=== PATIENT | female | born 1950 | race Caucasian/White ===

== ENCOUNTER 2019-03-10 23:53 | Inpatient (IN) | payer SELFPAY ==
[2019-03-11 00:47] LABS: BASO % 0.6 % (0-2.0); EOS % 4.8 % (0-4.5); HEMATOCRIT 35.3 % (32.4-45.2); HEMOGLOBIN 11.6 GM/dL (10.7-15.3); LYMPH % 28.1 % (8-40); MCH 29.1 pg (25.7-33.7); MCHC 32.9 g/dl (32.0-36.0); MEAN CELL VOLUME 88.6 fl (80-96); MEAN PLT VOLUME 12.8 fl (7.5-11.1); MONO % 11.7 % (3.8-10.2); NEUT % 54.8 % (42.8-82.8); RBC 3.98 M/mm3 (3.60-5.2); RDW 13.9 % (11.6-15.6); WHITE BLOOD COUNT 4.9 K/mm3 (4.0-10.0)
[2019-03-11] MEDS ORDERED: ACETAMINOPHEN 1000 MG/100 ML VIAL (NON FORMULARY) IVPB ONE (00:48)
[2019-03-11] MEDS ORDERED: morphine CARPU-JECT 2 MG/1 ML DISP.SYRIN IVPUSH ONE (00:48)
--- NOTE | 2019-03-11 00:48 | PDOC ---
History of Present Illness - General Chief Complaint: Cold Symptoms Stated Complaint: COUGH/MOUTH SORES Time Seen by Provider: 03/11/19 00:06 History Source: Patient Exam Limitations: Language Barrier (Chantell HARRIS #[id number]) - History of Present Illness Initial Comments: 03/11/19 00:42 HISTORY OF PRESENT ILLNESS: This is a 68-year-old woman who denies medical history presents emergency department for evaluation of headache, subjective fevers and cough for 3 days. Patient is been taking [id number] supportive treatments which have helped became concerned when she started having pain to the inside of her right cheek and reported having hemoptysis. She states the pain in her cheek started using Listerine yesterday and then the blood had started. She denies any recent travel or sick contacts. Patient states she does not take any medications and has had no surgeries. Patient reports a last dental visit was approximately 2 years ago. No recent travel or sick contacts. PAST MEDICAL HISTORY: Denies past medical history SURGICAL HISTORY: Denies ALLERGIES: No known drug allergies REVIEW OF SYSTEMS General/Constitutional: see HPI HEENT: see HPI Cardiovascular: Denies chest pain or shortness of breath. Respiratory: see HPI Gastrointestinal: Denies nausea, vomiting, diarrhea or constipation. Denies rectal bleeding. Genitourinary: Denies dysuria, frequency, or change in urination. Musculoskeletal: Denies joint or muscle swelling or pain. Denies neck or back pain. Skin and breasts: Denies rash or easy bruising. Neurologic: see HPI Psychiatric: Denies depression or anxiety. Endocrine: Denies increased thirst. Denies abnormal weight change. Hematologic/Lymphatic: Denies anemia, easy bleeding, or history of blood clots. Allergic/Immunologic: Denies hives or skin allergy. Denies latex allergy. PHYSICAL EXAM General Appearance: Well-appearing, appropriately dressed. No apparent distress , no intoxication. HEENT: EOMI, PERRLA, normal ENT inspection, normal voice, TMs normal. No conjunctival pallor. No photophobia, scleral icterus. 3 hyperpigmented tissue lesions present to the right buccal surface. Lesions are ovoid and approximately 1 cm x 2 cm x 0.25 cm. Lesions are noted to be bleeding. Sublingual surfaces are clear as well as the hard and soft palates and left buccal surface. Neck: Supple. Trachea midline. Tender anterior cervical lymphadenopathy present submandibularly. Respiratory/Chest: Lungs CTAB. No shortness of breath, chest tenderness, respiratory distress, accessory muscle use. No crackles, rales, rhonchi, stridor , wheezing, dullness Cardiovascular: RRR. S1, S2. No JVD, murmur, bradycardia, tachycardia. Vascular Pulses: Dorsalis-Pedis (R): 2+, Dorsalis-Pedis (L): 2+ Gastrointestinal/Abdominal: Normal bowel sounds. Abdomen soft, non-distended. No tenderness or rebound tenderness. No organomegaly, pulsatile mass, guarding, hernia, hepatomegaly, splenomegaly. Lymphatic: No adenopathy, tenderness. Musculoskeletal/Extremities: Normal inspection. FROM of all extremities, normal capillary refill. Pelvis Stable. No CVA tenderness. No tenderness to extremities, pedal edema, swelling, erythema or deformity. Integumentary: Appropriate color, dry, warm. No cyanosis, erythema, jaundice or rash Neurologic: drying equipment operator II-XII intact. Fully oriented, alert. Appropriate mood/affect. Motor strength 5/5. No appreciable EOM palsy, facial droop or sensory deficit. Past History - Past Medical History Allergies/Adverse Reactions: Allergies Allergy/AdvReac Type Severity Reaction Status Date / Time No Known Allergies Allergy Verified 03/11/19 00:00 Home Medications: Ambulatory Orders Mag Hydrox/Alh/Smc/Dpha/Lido [Magic Mouthwash *Sjr Formula* -] 5 ml MM Q6HPO bottle 03/14/19 Pantoprazole Sodium [Protonix -] 40 mg PO DAILY tablet.ec 03/14/19 - Suicide/Smoking/Psychosocial Hx Smoking History: Never smoked Have you smoked in the past 12 months: No Information on smoking cessation initiated: No Hx Alcohol Use: No Drug/Substance Use Hx: No *Physical Exam - Vital Signs Last Vital Signs Temp Pulse Resp BP Pulse Ox 98.1 F 70 18 123/64 97 03/11/19 00:00 03/11/19 00:00 03/11/19 00:00 03/11/19 00:00 03/11/19 00:00 ED Treatment Course - LABORATORY CBC & Chemistry Diagram: 03/14/19 07:30 03/14/19 07:30 - RADIOLOGY Radiology Studies Ordered: Category Date Time Status CHEST PA & LAT [RAD] Stat Radiology 03/11/19 00:18 Ordered Medical Decision Making - Critical Care Time Total Critical Care Time (minutes): 45 Critical Care Statement: The care of this patient involved high complexity decision making to prevent further life threatening deterioration of the patient 's condition and/or to evaluate & treat vital organ system(s) failure or risk of failure. - Medical Decision Making 03/11/19 00:47 A/P: 68-year-old woman with 3 days of upper respiratory illness and bleeding lesions in her mouth for 2 days Differential diagnosis includes but is not limited to upper rest infection, neoplasm-? Leukemia or lymphoma, anemia, tuberculosis, pneumonia Basic labs including correlation profile Chest x-ray Morphine 2 mg IV Tylenol 1 g IV Reassess 03/11/19 01:12 Laboratory Tests 03/11/19 03/11/19 00:35 00:35 WBC 4.9 Hgb 11.6 Hct 35.3 Plt Count 1 L* Sodium 144 Potassium 4.8 Chloride 112 H Carbon Dioxide 29 BUN 23.5 H Creatinine 0.9 Random Glucose 123 H Calcium 8.5 Total Bilirubin 0.4 AST 20 ALT 35 Alkaline Phosphatase 78 Total Protein 7.1 Albumin 4.0 Repeat type and screen ordered as patient has never had a type and screen in the system before. CT head now prior to admission. Platelets ordered. 03/11/19 01:18 03/11/19 02:08 Laboratory testing has been discussed with the patient. Risks and benefits of blood transfusion have been explained to the patient's questions related to wrist and benefits of blood transfusion have been answered. Patient is agreement to have platelets transfused and has signed consent. The patient understands the need for admission. CT scan as read by me: No intracranial hemorrhage identified. [place]k read is pending. Chest x-rays read by me: Angles clear. Cardiac silhouette is within normal limits. Lung delarosa are clear without consolidations or infiltrates noted. D-dimer and fibrinogen ordered. Microblog sent to the hospitalist service for admission. 03/11/19 02:09 03/11/19 02:25 03/11/19 02:46 Case has been discussed with Dr. Jennings of the hospitalist service who accepts patient for admission under Dr. Lugo. 03/11/19 02:[address] Rosales of imaging rehabilitation services counselor: Irregular thickening of the high parietal falx possibly representing a 3 mm right-sided subdural hematoma. Is also 2 mm density anterior to the frontal horn of the right lateral ventricle which could represent a tiny bleed or tiny calcification. There is no mass effect. No skull fracture or skull lesion is identified. Visualized paranasal sinuses and mastoid air cells are clear. Recommends repeat imaging within [address] or MRI. 03/11/19 03:12 Given CTA findings, neurosurgery has been paged to discuss the case. Admission is on hold until neurosurgery has been consult. Patient has been signed out to Breanna Hickey to follow up with neurosurgery and disposition. *DC/Admit/Observation/Transfer Diagnosis at time of Disposition: Thrombocytopenia - Discharge Dispostion Disposition: TRANSFER ACUTE CARE/OTHER HOSP Condition at time of disposition: Good - Referrals - Patient Instructions - Post Discharge Activity
[2019-03-11] MEDS ORDERED: ACETAMINOPHEN INJECTION 100 ML IVPB ONE (00:55)
[2019-03-11] MEDS ORDERED: MORPHINE SULFATE 2 MG/ML VIAL ONE (00:55)
[2019-03-11 01:06] LABS: BILIRUBIN,TOTAL 0.4 mg/dL (0.2-1); BLOOD UREA NITROGEN 23.5 mg/dL (7-18); CALCIUM 8.5 mg/dL (8.5-10.1); CREATININE 0.9 mg/dL (0.55-1.3); POTASSIUM 4.8 mmol/L (3.5-5.1); TOT PROT 7.1 g/dl (6.4-8.2)
[2019-03-11 01:07] LABS: INR 0.95 (0.83-1.09); PROTHROMBIN TIME (PATIENT) 11.2 SEC (9.7-13.0)
[2019-03-11 01:41] LABS: EPI CELLS 9.6 /HPF (0-5/HPF); HYALINE CASTS 81 /lpf (0-8); URINE APPEARANCE CLOUDY; URINE BACTERIA 37.3 /hpf (NEGATIVE); URINE BILIRUBIN 1+ (NEGATIVE); URINE COLOR DK YELLOW; URINE GLUCOSE (UA) NEGATIVE (NEGATIVE); URINE KETONE 1+ (NEGATIVE); URINE LEUK ESTERASE 1+ (NEGATIVE); URINE NITRITE NEGATIVE (NEGATIVE); URINE PROTEIN 2+ (NEGATIVE); URINE WBC 24 /hpf (0-5)
[2019-03-11 03:05] LABS: PLATELET COUNT 1 K/MM3 (134-434)
[2019-03-11 03:40] LABS: URINE RBC 9 /hpf (0-4)
--- NOTE | 2019-03-11 03:42 | PDOC ---
*Physical Exam - Vital Signs Last Vital Signs Temp Pulse Resp BP Pulse Ox 98.7 F 73 18 131/81 95 03/11/19 00:10 03/11/19 00:10 03/11/19 00:10 03/11/19 00:10 03/11/19 00:10 ED Treatment Course - LABORATORY CBC & Chemistry Diagram: 03/14/19 07:30 03/14/19 07:30 - ADDITIONAL ORDERS Additional order review: Laboratory Results 03/11/19 03/11/19 03/11/19 01:31 00:50 00:35 PT with INR INR Sodium Potassium Chloride Carbon Dioxide Anion Gap BUN Creatinine Est GFR (CKD-EPI)AfAm Est GFR (CKD-EPI)NonAf Random Glucose Calcium Total Bilirubin AST ALT Alkaline Phosphatase Total Protein Albumin Urine Color Dk yellow Urine Appearance Cloudy Urine pH 5.0 Ur Specific [place] 1.037 H Urine Protein 2+ H Urine Glucose (UA) Negative Urine Ketones 1+ H Urine Blood Trace Urine Nitrite Negative Urine Bilirubin 1+ H Urine Urobilinogen 1.0 Ur Leukocyte Esterase 1+ H Urine WBC (Auto) 24 Urine Casts (Auto) 81 U Pathogenic Cast Auto Review A* U Epithel Cells (Auto) 9.6 Urine Bacteria (Auto) 37.3 Urine Yeast (Auto) Review A* Blood Type A POSITIVE A POSITIVE Antibody Screen Negative 03/11/19 03/11/19 00:35 00:35 PT with INR 11.20 INR 0.95 Sodium 144 Potassium 4.8 Chloride 112 H Carbon Dioxide 29 Anion Gap 4 L BUN 23.5 H Creatinine 0.9 Est GFR (CKD-EPI)AfAm 77.22 Est GFR (CKD-EPI)NonAf 66.63 Random Glucose 123 H Calcium 8.5 Total Bilirubin 0.4 AST 20 ALT 35 Alkaline Phosphatase 78 Total Protein 7.1 Albumin 4.0 Urine Color Urine Appearance Urine pH Ur Specific [place] Urine Protein Urine Glucose (UA) Urine Ketones Urine Blood Urine Nitrite Urine Bilirubin Urine Urobilinogen Ur Leukocyte Esterase Urine WBC (Auto) Urine Casts (Auto) U Pathogenic Cast Auto U Epithel Cells (Auto) Urine Bacteria (Auto) Urine Yeast (Auto) Blood Type Antibody Screen 03/11/19 00:35 RBC 3.98 MCV 88.6 MCHC 32.9 RDW 13.9 MPV 12.8 H Neutrophils % 54.8 Lymphocytes % 28.1 Monocytes % 11.7 H Eosinophils % 4.8 H Basophils % 0.6 - Medications Given in the ED: ED Medications Discontinued Medications Generic Name Dose Route Start Last Admin Trade Name Jose Luis PRN Reason Stop Dose Admin Acetaminophen 1,000 mg 03/11/19 00:48 03/11/19 01:08 Ofirmev Injection - IVPB 03/11/19 00:49 1,000 mg ONCE ONE Administration Morphine Sulfate 2 mg 03/11/19 00:48 03/11/19 01:07 Morphine Injection - IVPUSH 03/11/19 00:49 2 mg ONCE ONE Administration Medical Decision Making - Critical Care Time Total Critical Care Time (minutes): 60 Critical Care Statement: The care of this patient involved high complexity decision making to prevent further life threatening deterioration of the patient 's condition and/or to evaluate & treat vital organ system(s) failure or risk of failure. - Medical Decision Making 03/11/19 03:37 Pt signed out to me by LIZZ Stevenson at 3AM 68 F with severe thrombocytopenia. Head CT obtained showing ?SDH. Per radiologist, this could be artifact but given thrombocytopenia, cannot exclude bleed. Will need repeat head CT in 24 hrs. Pt without headache, no neuro deficits at this time Dr. Анна rodríguez, awaiting callback. 03/11/19 03:48 Pt admitted to hospitalist Will admit to ICU 03/15/19 09:23 *DC/Admit/Observation/Transfer Diagnosis at time of Disposition: Thrombocytopenia - Discharge Dispostion Disposition: TRANSFER ACUTE CARE/OTHER HOSP Condition at time of disposition: Good Decision to Admit order: Yes - Referrals - Patient Instructions - Post Discharge Activity - Attestations Physician Attestion: 03/11/19 03:50 I, Dr. Maverick Hickey MD, attest that this document has been prepared under my direction and personally reviewed by me in its entirety. I further attest, that it accurately reflects all work, treatment, procedures and medical decision -making performed by me.
--- NOTE | 2019-03-11 03:44 | PN ---
Teaching Attending Note Name of Resident: Pearl Jennings ATTENDING PHYSICIAN STATEMENT I saw and evaluated the patient. CHart, data, imaging reviewed. I reviewed the resident's note and discussed the case with the resident. I agree with the resident's findings and plan as documented. SUBJECTIVE: 68yo Maur[place] woman c/o cough, headache since this past wed, reported oral mucosal bleeding which started / and prompted her to come to ER. She took one advil for her headache yesterday. Denied taking any other medications. OBJECTIVE: Last Vital Signs Temp Pulse Resp BP Pulse Ox 98.7 F 73 18 131/81 95 03/11/19 00:10 03/11/19 00:10 03/11/19 00:10 03/11/19 00:10 03/11/19 00:10 heent- bleeding inside oral cavity, blood clots seen neck supple chest clear cv-s1+s2+rrr abdomen- soft, nt, bs+ skin -multiple petechaie seen Abnormal Lab Results 03/11/19 03/11/19 03/11/19 00:35 00:35 00:50 Plt Count 1 L* MPV 12.8 H Monocytes % 11.7 H Eosinophils % 4.8 H Chloride 112 H Anion Gap 4 L BUN 23.5 H Random Glucose 123 H Ur Specific [place] 1.037 H Urine Protein 2+ H Urine Ketones 1+ H Urine Bilirubin 1+ H Ur Leukocyte Esterase 1+ H U Pathogenic Cast Auto Review A* Urine Yeast (Auto) Review A* head CT report appreciated- possible 3mm right sided hematoma -thickening of high parietal falx. 2mm density anterior to frontal horn of right lateral ventricle - could be tiny bleed ASSESSMENT AND PLAN: #Severe thrombocytopenia - 1k plt, confirmed in sodium citrate tube with hematology with possible small foci of intracranial bleed as described above. Hemodynamically stable. Uncertain etiology of thrombocytopenia. No family history. R/o splenomegally, hep b,c HIV. ITP? Denied taking other meds other than one dose of advil. 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
--- NOTE | 2019-03-11 04:51 | HP ---
CHIEF COMPLAINT: Headache, Cough PCP: Denies HISTORY OF PRESENT ILLNESS: 68 y/o F with no significant PMHx presents from home with Oral mucosa bleeding. Patient is primarily ugandan speaking, thus the hx was provided via machine rigger phone (Delon [id number]). Patient was in her usual state of health on Tuesday; On tuesday while ironing clothes, she began to cough productive of some blood. She then rinsed her mouth with listerine and water, and noticed sores over her buccal mucosa. Since then, the lesions have continued to bleed and became painful yesterday for which the patient took Advil (cannot recall dose). The pain and bleeding have continued prompting her to visit the ED. This is the first time she has experienced this and she denies any trauma or recent falls. She has used listerine in the past without any reaction in the past. Additionally she endorses headache and subjective fevers. Denies any recent medication use, travel. Denies any hx of HIV, Hep B/C, SLE. Denies any family members with any similar symptoms. No recent viral illness. ER course was notable for: (1) (2) (3) Recent Travel: Denies PAST MEDICAL HISTORY: Denies PAST SURGICAL HISTORY: Denies Social History: Smoking: Denies Alcohol: Denies Drugs: Denies Family History: Denies Allergies No Known Allergies Allergy (Verified 03/11/19 00:00) HOME MEDICATIONS: Home Medications Medication Instructions Recorded NK [No Known Home Medication] 03/11/19 REVIEW OF SYSTEMS As per HPI PHYSICAL EXAMINATION Vital Signs - 24 hr 03/11/19 03/11/19 00:00 00:10 Temperature 98.1 F 98.7 F Pulse Rate 70 Pulse Rate [ 73 Left Apical] Respiratory 18 18 Rate Blood Pressure 123/64 Blood Pressure 131/81 [Right Arm] O2 Sat by Pulse 97 95 Oximetry (%) GENERAL:A&Ox3, NAD HEAD: NCAT EYES: PERRL, EOMI EARS, NOSE, THROAT: Small lesion over the right buccal membrane with active bleeding, blood clots present over lesion NECK: Supple LUNGS: clear to auscultation bilaterally. No wheezes, no crackles HEART: Regular rate and rhythm, normal S1 and S2 without murmur ABDOMEN: Soft, nontender, not distended, + bowel sounds, no guarding MUSCULOSKELETAL: No CVA tenderness EXTREMITIES: No peripheral edema. NEUROLOGICAL: Cranial nerves II-XII intact. Normal speech SKIN: Warm, dry, Petechiaeie seen over the abdomen and b/l lower extremities Laboratory Results - last 24 hr 03/11/19 03/11/19 03/11/19 00:35 00:35 00:35 WBC 4.9 RBC 3.98 Hgb 11.6 Hct 35.3 MCV 88.6 MCH 29.1 MCHC 32.9 RDW 13.9 Plt Count 1 L* MPV 12.8 H Absolute Neuts (auto) 2.7 Neutrophils % 54.8 Lymphocytes % 28.1 Monocytes % 11.7 H Eosinophils % 4.8 H Basophils % 0.6 Nucleated RBC % 0 PT with INR 11.20 INR 0.95 PTT (Actin FS) Fibrinogen D-Dimer Sodium 144 Potassium 4.8 Chloride 112 H Carbon Dioxide 29 Anion Gap 4 L BUN 23.5 H Creatinine 0.9 Est GFR (CKD-EPI)AfAm 77.22 Est GFR (CKD-EPI)NonAf 66.63 Random Glucose 123 H Calcium 8.5 Total Bilirubin 0.4 AST 20 ALT 35 Alkaline Phosphatase 78 Total Protein 7.1 Albumin 4.0 Urine Color Urine Appearance Urine pH Ur Specific [place] Urine Protein Urine Glucose (UA) Urine Ketones Urine Blood Urine Nitrite Urine Bilirubin Urine Urobilinogen Ur Leukocyte Esterase Urine WBC (Auto) Urine RBC (Auto) Urine Casts (Auto) U Pathogenic Cast Auto U Epithel Cells (Auto) U Sm Round Cell (Auto) Urine Crystals (Auto) Urine Bacteria (Auto) Urine Yeast (Auto) Blood Type Antibody Screen 03/11/19 03/11/19 03/11/19 00:35 00:50 01:31 WBC RBC Hgb Hct MCV MCH MCHC RDW Plt Count MPV Absolute Neuts (auto) Neutrophils % Lymphocytes % Monocytes % Eosinophils % Basophils % Nucleated RBC % PT with INR INR PTT (Actin FS) Fibrinogen D-Dimer Sodium Potassium Chloride Carbon Dioxide Anion Gap BUN Creatinine Est GFR (CKD-EPI)AfAm Est GFR (CKD-EPI)NonAf Random Glucose Calcium Total Bilirubin AST ALT Alkaline Phosphatase Total Protein Albumin Urine Color Dk yellow Urine Appearance Cloudy Urine pH 5.0 Ur Specific [place] 1.037 H Urine Protein 2+ H Urine Glucose (UA) Negative Urine Ketones 1+ H Urine Blood Trace Urine Nitrite Negative Urine Bilirubin 1+ H Urine Urobilinogen 1.0 Ur Leukocyte Esterase 1+ H Urine WBC (Auto) 24 Urine RBC (Auto) 9 Urine Casts (Auto) 81 U Pathogenic Cast Auto None U Epithel Cells (Auto) 9.6 U Sm Round Cell (Auto) None Urine Crystals (Auto) None Urine Bacteria (Auto) 37.3 Urine Yeast (Auto) None Blood Type A POSITIVE A POSITIVE Antibody Screen Negative Negative 03/11/19 03/11/19 01:53 03:16 WBC RBC Hgb Hct MCV MCH MCHC RDW Plt Count MPV Absolute Neuts (auto) Neutrophils % Lymphocytes % Monocytes % Eosinophils % Basophils % Nucleated RBC % PT with INR INR PTT (Actin FS) 41.4 H Fibrinogen 455.0 D-Dimer 996 H Sodium Potassium Chloride Carbon Dioxide Anion Gap BUN Creatinine Est GFR (CKD-EPI)AfAm Est GFR (CKD-EPI)NonAf Random Glucose Calcium Total Bilirubin AST ALT Alkaline Phosphatase Total Protein Albumin Urine Color Urine Appearance Urine pH Ur Specific [place] Urine Protein Urine Glucose (UA) Urine Ketones Urine Blood Urine Nitrite Urine Bilirubin Urine Urobilinogen Ur Leukocyte Esterase Urine WBC (Auto) Urine RBC (Auto) Urine Casts (Auto) U Pathogenic Cast Auto U Epithel Cells (Auto) U Sm Round Cell (Auto) Urine Crystals (Auto) Urine Bacteria (Auto) Urine Yeast (Auto) Blood Type Antibody Screen IMAGING: -CT Head without contrast (Prelim read): Very questionable 3 mm high right parafalcine subdural hematoma without mass-effect. Questionable 2 mm bleed or calcification anterior to the frontal bone of the right lateral ventricle. Recommend follow-up CT or MRI in the next 24 hours in order to demonstrate stability EKG: Sinus bradycardia, VR 57, QTc 430 ASSESSMENT/PLAN: 68 y/o F with no significant PMHx presents from home with Oral mucosa bleeding, found to have Platelet count of 1K, and possible Subdural Hematoma and bleed or calcification anterior to the frontal bone, and will be admitted to ICU. #Isolated Thrombocytopenia -Unclear Etiology; No recent medication use (including Heparin, NOAC, Clopidogrel) other than Advil, Denies any hx of HIV, HCV, SLE, No Family hx-- Concern remains for ITP -Neck tenderness however no noted Anterior Lymphadenopathy, No Splenomegaly -VSS, Continues to have small amount of bleeding from area -Abdominal US to r/o splenomegaly -Check Hep B/C panel, HIV, CXR -Will Transfuse platelets for goal of >100k with serial Plt check's -Hematology (Dr. Barker) Consulted #Subdural Hematoma and bleed or calcification anterior to the frontal bone -CT Head finding noted above -Remains without FND -Neurosurgey (Dr. Jj) consulted -Serial head CT Q8H -Neurocheck Q4H -Avoid Antiplatelet and Anticoagulation agents -Continue oral suctioning #FEN -No standing fluids -Lytes WNL -NPO pending neurosx eval #PPx -DVT: SCDs; Hold chemical AC in the setting of thrombocytopenia Dispo: Admit to ICU Visit type - Emergency Visit Emergency Visit: Yes ED Registration Date: 03/11/19 Care time: The patient presented to the Emergency Department on the above date and was hospitalized for further evaluation of their emergent condition. - New Patient This patient is new to me today: Yes Date on this admission: 03/12/19 - Critical Care Critical Care patient: No
--- NOTE | 2019-03-11 05:18 | CONSULT ---
Consultation: HISTORY OF PRESENT ILLNESS: 68F with no pmh presented to the ED with sore throat and cough since Tuesday as well as bleeding from her mouth. She states that she was chewing gun on Tuesday before she bit her tongue on the left side. She used listerine and has been bleeding ever since. Took one advil yesterday. Patient found to have platelet count of 1 and questionable small acute subdural hematoma. Patient started on 6 Units of platelets. ICu consulted. REVIEW OF SYSTEMS: CONSTITUTIONAL: Absent: fever, chills, diaphoresis, generalized weakness, malaise, loss of appetite, weight change HEENT: Sore throat, bleeding from mouth. Absent: rhinorrhea, nasal congestion, throat swelling, difficulty swallowing, mouth swelling, ear pain, eye pain, visual changes CARDIOVASCULAR: Absent: chest pain, syncope, palpitations, irregular heart rate, lightheadedness , peripheral edema RESPIRATORY: Absent: cough, shortness of breath, dyspnea with exertion, orthopnea, wheezing, stridor, hemoptysis GASTROINTESTINAL: Absent: abdominal pain, abdominal distension, nausea, vomiting, diarrhea, constipation, melena, hematochezia GENITOURINARY: Absent: dysuria, frequency, urgency, hesitancy, hematuria, flank pain, genital pain MUSCULOSKELETAL: Absent: myalgia, arthralgia, joint swelling, back pain, neck pain SKIN: Absent: rash, itching, pallor HEMATOLOGIC/IMMUNOLOGIC: Absent: easy bleeding, easy bruising, lymphadenopathy, frequent infections ENDOCRINE: Absent: unexplained weight gain, unexplained weight loss, heat intolerance, cold intolerance NEUROLOGIC: Absent: headache, focal weakness or paresthesias, dizziness, unsteady gait, seizure, mental status changes, bladder or bowel incontinence PSYCHIATRIC: Absent: anxiety, depression, suicidal or homicidal ideation, hallucinations. PHYSICAL EXAMINATION Vital Signs - 24 hr 03/11/19 03/11/19 00:00 00:10 Temperature 98.1 F 98.7 F Pulse Rate 70 Pulse Rate [ 73 Left Apical] Respiratory 18 18 Rate Blood Pressure 123/64 Blood Pressure 131/81 [Right Arm] O2 Sat by Pulse 97 95 Oximetry (%) GENERAL: Awake, alert, and fully oriented, in no acute distress. HEAD: Normal with no signs of trauma. EYES: Pupils equal, round and reactive to light, extraocular movements intact, sclera anicteric, conjunctiva clear. No lid lag. EARS, NOSE, THROAT: Ears normal, nares patent, oropharynx clear without exudates. Moist mucous membranes. Soft, narrow, purple mass well-demarcated from within the cheek wall, with easily separable hurtaod, bleeding, mildly painful. Small ulcer to the left side of the tongue. NECK: Normal range of motion, supple without lymphadenopathy, JVD, or masses. LUNGS: Breath sounds equal, clear to auscultation bilaterally. No wheezes, and no crackles. No accessory muscle use. HEART: Regular rate and rhythm, normal S1 and S2 without murmur, rub or gallop. ABDOMEN: Soft, nontender, not distended, normoactive bowel sounds, no guarding, no rebound, no masses. No hepatomegaly or splenomegaly. MUSCULOSKELETAL: Normal range of motion at all joints. No bony deformities or tenderness. No CVA tenderness. UPPER EXTREMITIES: 2+ pulses, warm, well-perfused. No cyanosis. No clubbing. Cap refill <2 seconds. No peripheral edema. LOWER EXTREMITIES: 2+ pulses, warm, well-perfused. No calf tenderness. No peripheral edema. NEUROLOGICAL: Cranial nerves II-XII intact. Normal speech. Normal gait. PSYCHIATRIC: Cooperative. Good eye contact. Appropriate mood and affect. SKIN: Small hematoma middle palm of the left hand. generalized petechiae, worse over the legs. Warm, dry, normal turgor. Laboratory Results - last 24 hr 03/11/19 03/11/19 03/11/19 00:35 00:35 00:35 WBC 4.9 RBC 3.98 Hgb 11.6 Hct 35.3 MCV 88.6 MCH 29.1 MCHC 32.9 RDW 13.9 Plt Count 1 L* MPV 12.8 H Absolute Neuts (auto) 2.7 Neutrophils % 54.8 Lymphocytes % 28.1 Monocytes % 11.7 H Eosinophils % 4.8 H Basophils % 0.6 Nucleated RBC % 0 PT with INR 11.20 INR 0.95 PTT (Actin FS) Fibrinogen D-Dimer Sodium 144 Potassium 4.8 Chloride 112 H Carbon Dioxide 29 Anion Gap 4 L BUN 23.5 H Creatinine 0.9 Est GFR (CKD-EPI)AfAm 77.22 Est GFR (CKD-EPI)NonAf 66.63 Random Glucose 123 H Calcium 8.5 Total Bilirubin 0.4 AST 20 ALT 35 Alkaline Phosphatase 78 Total Protein 7.1 Albumin 4.0 Urine Color Urine Appearance Urine pH Ur Specific [place] Urine Protein Urine Glucose (UA) Urine Ketones Urine Blood Urine Nitrite Urine Bilirubin Urine Urobilinogen Ur Leukocyte Esterase Urine WBC (Auto) Urine RBC (Auto) Urine Casts (Auto) U Pathogenic Cast Auto U Epithel Cells (Auto) U Sm Round Cell (Auto) Urine Crystals (Auto) Urine Bacteria (Auto) Urine Yeast (Auto) Blood Type Antibody Screen 03/11/19 03/11/19 03/11/19 00:35 00:50 01:31 WBC RBC Hgb Hct MCV MCH MCHC RDW Plt Count MPV Absolute Neuts (auto) Neutrophils % Lymphocytes % Monocytes % Eosinophils % Basophils % Nucleated RBC % PT with INR INR PTT (Actin FS) Fibrinogen D-Dimer Sodium Potassium Chloride Carbon Dioxide Anion Gap BUN Creatinine Est GFR (CKD-EPI)AfAm Est GFR (CKD-EPI)NonAf Random Glucose Calcium Total Bilirubin AST ALT Alkaline Phosphatase Total Protein Albumin Urine Color Dk yellow Urine Appearance Cloudy Urine pH 5.0 Ur Specific [place] 1.037 H Urine Protein 2+ H Urine Glucose (UA) Negative Urine Ketones 1+ H Urine Blood Trace Urine Nitrite Negative Urine Bilirubin 1+ H Urine Urobilinogen 1.0 Ur Leukocyte Esterase 1+ H Urine WBC (Auto) 24 Urine RBC (Auto) 9 Urine Casts (Auto) 81 U Pathogenic Cast Auto None U Epithel Cells (Auto) 9.6 U Sm Round Cell (Auto) None Urine Crystals (Auto) None Urine Bacteria (Auto) 37.3 Urine Yeast (Auto) None Blood Type A POSITIVE A POSITIVE Antibody Screen Negative Negative 03/11/19 03/11/19 01:53 03:16 WBC RBC Hgb Hct MCV MCH MCHC RDW Plt Count MPV Absolute Neuts (auto) Neutrophils % Lymphocytes % Monocytes % Eosinophils % Basophils % Nucleated RBC % PT with INR INR PTT (Actin FS) 41.4 H Fibrinogen 455.0 D-Dimer 996 H Sodium Potassium Chloride Carbon Dioxide Anion Gap BUN Creatinine Est GFR (CKD-EPI)AfAm Est GFR (CKD-EPI)NonAf Random Glucose Calcium Total Bilirubin AST ALT Alkaline Phosphatase Total Protein Albumin Urine Color Urine Appearance Urine pH Ur Specific [place] Urine Protein Urine Glucose (UA) Urine Ketones Urine Blood Urine Nitrite Urine Bilirubin Urine Urobilinogen Ur Leukocyte Esterase Urine WBC (Auto) Urine RBC (Auto) Urine Casts (Auto) U Pathogenic Cast Auto U Epithel Cells (Auto) U Sm Round Cell (Auto) Urine Crystals (Auto) Urine Bacteria (Auto) Urine Yeast (Auto) Blood Type Antibody Screen Active Medications Generic Name Dose Route Start Last Admin Trade Name Jose Luis PRN Reason Stop Dose Admin Chlorhexidine Gluconate 1 applic 03/11/19 22:00 Hibiclens For Decolonization - TP HS AZUCENA Mupirocin 1 applic 03/11/19 10:00 Bactroban Ointment (For Decolonization) - NS 03/16/19 09:59 BID [facility] ASSESSMENT/PLAN: 68F with no pmh presented to the ED with sore throat and cough since Tuesday as well as bleeding from her mouth. Neuro: Subdural hematoma? - No focal deficits or changes at this time. - Consulted with Dr. Jj Neurosurgery, no call backs yet. - Ct head repeat at 9am - Neuro checks q4 - Oral suctioning as needed. Heme/onc: Thrombocytopenia - Thrombocytopenia treated with 6 units of platelets currently running. Goal > [id number] - Blood smear pending - Pending tests for viral infectious sources. Consult ID if needed. - abdominal US pending - Dr. Barker consulted. Cardio - Hemodynamically stable Diet: - NPO until neurosx consult. SCDs; Hold chemical AC in the setting of thrombocytopenia Dispo: We will continue to follow the patient. Thank you for this consultative opportunity. Visit type - Emergency Visit Emergency Visit: Yes ED Registration Date: 03/11/19 Care time: The patient presented to the Emergency Department on the above date and was hospitalized for further evaluation of their emergent condition. - New Patient This patient is new to me today: Yes Date on this admission: 03/11/19 - Critical Care Critical Care patient: Yes Total Critical Care Time (in minutes): 35 Critical Care Statement: The care of this patient involved high complexity decision making to prevent further life threatening deterioration of the patient 's condition and/or to evaluate & treat vital organ system(s) failure or risk of failure.
[2019-03-11 07:43] LABS: ALBUMIN 3.9 g/dl (3.4-5.0); ALK PHOS 73 U/L (45-117); ANION GAP 4 MMOL/L (8-16); BILIRUBIN,TOTAL 0.4 mg/dL (0.2-1); BLOOD UREA NITROGEN 24.5 mg/dL (7-18); CALCIUM 8.7 mg/dL (8.5-10.1); CHLORIDE 111 mmol/L (98-107); CO2 28 mmol/L (21-32); CREATININE 0.8 mg/dL (0.55-1.3); GLUCOSE,RANDOM 100 mg/dL (74-106); MAGNESIUM 2.4 mg/dL (1.8-2.4); PHOSPHOROUS 4.7 mg/dL (2.5-4.9); POTASSIUM 3.9 mmol/L (3.5-5.1); SGOT/AST 20 U/L (15-37); SGPT/ALT 35 U/L (13-61); SODIUM 143 mmol/L (136-145); TOT PROT 6.9 g/dl (6.4-8.2)
[2019-03-11 08:52] LABS: HEMATOCRIT 29.8 % (32.4-45.2); HEMOGLOBIN 9.8 GM/dL (10.7-15.3); MCH 29.1 pg (25.7-33.7); MEAN CELL VOLUME 88.2 fl (80-96); MEAN PLT VOLUME 8.2 fl (7.5-11.1); RBC 3.38 M/mm3 (3.60-5.2); RDW 13.8 % (11.6-15.6)
[2019-03-11 09:11] LABS: PLATELET COUNT 68 K/MM3 (134-434)
--- NOTE | 2019-03-11 10:42 | PN ---
Teaching Attending Note Name of Resident: Efrain Mora ATTENDING PHYSICIAN STATEMENT I saw and evaluated the patient. I reviewed the resident's note and discussed the case with the resident. I agree with the resident's findings and plan as documented. SUBJECTIVE: Pt seen and examined in the ICU. No obvious bleeding. Does c/o mild frontal headache. No nausea. OBJECTIVE: Vital Signs Period Temp Pulse Resp BP Sys/Farooq Pulse Ox Last 24 Hr 97.8 F-98.7 F 55-73 16-22 111-142/64-88 95-100 Intake & Output 03/08/19 03/09/19 03/10/19 03/11/19 23:59 23:59 23:59 23:59 Intake Total 355 Balance 355 Weight 69 kg Gen: NAD at rest Heart: RRR Lung: decreased breath sounds at the bases Abd: soft, nontender Ext: no edema Skin: +petechiae CBC, BMP 03/11/19 07:00 03/11/19 07:00 Active Medications Chlorhexidine Gluconate (Hibiclens For Decolonization -) 1 applic TP HS AZUCENA Mupirocin (Bactroban Ointment (For Decolonization) -) 1 applic NS BID AZUCENA Stop: 03/16/19 09:59 ASSESSMENT AND PLAN: Severe Thrombocytopenia Anemia r/o ITP Subdural Hematoma - neuro checks - repeat CT head - monitor CBC - transfuse as needed - viral studies pending - peripheral smear - heme eval - continue ICU monitoring for now
--- NOTE | 2019-03-11 10:54 | PN ---
Physical Exam: SUBJECTIVE: Patient seen and examined at bedside. Complains of mild headache. Bleeding has resolved. OBJECTIVE: Vital Signs Period Temp Pulse Resp BP Sys/Farooq Pulse Ox Last 24 Hr 97.8 F-98.7 F 55-73 16-22 111-142/64-88 95-100 GENERAL: A&Ox3, no acute distress EYES: PERRLA, EOMI ENT: R side of cheek erythematous lesion on inside of mouth, appears to be peeling off mucosa. L sided tongue lesion noted from bite. NECK: No JVD LUNGS: CTA, no wheezes HEART: RRR, no murmurs ABDOMEN: Soft, nontender, BS present, petechiae noted on BREAST: no breast lesions or nodules noted on exam MUSCULOSKELETAL: No CVA Tenderness EXTREMITIES: 2+ pulses, no edema. petechiae noted on b/l lower extremities NEUROLOGICAL: Cranial nerves II-XII intact. No focal deficits. Laboratory Results - last 24 hr 03/11/19 03/11/19 03/11/19 00:35 00:35 00:35 WBC 4.9 RBC 3.98 Hgb 11.6 Hct 35.3 MCV 88.6 MCH 29.1 MCHC 32.9 RDW 13.9 Plt Count 1 L* MPV 12.8 H Absolute Neuts (auto) 2.7 Neutrophils % 54.8 Lymphocytes % 28.1 Monocytes % 11.7 H Eosinophils % 4.8 H Basophils % 0.6 Nucleated RBC % 0 PT with INR 11.20 INR 0.95 PTT (Actin FS) Fibrinogen D-Dimer Sodium 144 Potassium 4.8 Chloride 112 H Carbon Dioxide 29 Anion Gap 4 L BUN 23.5 H Creatinine 0.9 Est GFR (CKD-EPI)AfAm 77.22 Est GFR (CKD-EPI)NonAf 66.63 Random Glucose 123 H Calcium 8.5 Phosphorus Magnesium Total Bilirubin 0.4 AST 20 ALT 35 Alkaline Phosphatase 78 Total Protein 7.1 Albumin 4.0 Vitamin B12 Urine Color Urine Appearance Urine pH Ur Specific [place] Urine Protein Urine Glucose (UA) Urine Ketones Urine Blood Urine Nitrite Urine Bilirubin Urine Urobilinogen Ur Leukocyte Esterase Urine WBC (Auto) Urine RBC (Auto) Urine Casts (Auto) U Pathogenic Cast Auto U Epithel Cells (Auto) U Sm Round Cell (Auto) Urine Crystals (Auto) Urine Bacteria (Auto) Urine Yeast (Auto) Monoscreen Blood Type Antibody Screen 03/11/19 03/11/19 03/11/19 00:35 00:50 01:31 WBC RBC Hgb Hct MCV MCH MCHC RDW Plt Count MPV Absolute Neuts (auto) Neutrophils % Lymphocytes % Monocytes % Eosinophils % Basophils % Nucleated RBC % PT with INR INR PTT (Actin FS) Fibrinogen D-Dimer Sodium Potassium Chloride Carbon Dioxide Anion Gap BUN Creatinine Est GFR (CKD-EPI)AfAm Est GFR (CKD-EPI)NonAf Random Glucose Calcium Phosphorus Magnesium Total Bilirubin AST ALT Alkaline Phosphatase Total Protein Albumin Vitamin B12 Urine Color Dk yellow Urine Appearance Cloudy Urine pH 5.0 Ur Specific [place] 1.037 H Urine Protein 2+ H Urine Glucose (UA) Negative Urine Ketones 1+ H Urine Blood Trace Urine Nitrite Negative Urine Bilirubin 1+ H Urine Urobilinogen 1.0 Ur Leukocyte Esterase 1+ H Urine WBC (Auto) 24 Urine RBC (Auto) 9 Urine Casts (Auto) 81 U Pathogenic Cast Auto None U Epithel Cells (Auto) 9.6 U Sm Round Cell (Auto) None Urine Crystals (Auto) None Urine Bacteria (Auto) 37.3 Urine Yeast (Auto) None Monoscreen Blood Type A POSITIVE A POSITIVE Antibody Screen Negative Negative 03/11/19 03/11/19 03/11/19 01:53 03:16 07:00 WBC RBC Hgb Hct MCV MCH MCHC RDW Plt Count MPV Absolute Neuts (auto) Neutrophils % Lymphocytes % Monocytes % Eosinophils % Basophils % Nucleated RBC % PT with INR INR PTT (Actin FS) 41.4 H Fibrinogen 455.0 D-Dimer 996 H Sodium Potassium Chloride Carbon Dioxide Anion Gap BUN Creatinine Est GFR (CKD-EPI)AfAm Est GFR (CKD-EPI)NonAf Random Glucose Calcium Phosphorus Magnesium Total Bilirubin AST ALT Alkaline Phosphatase Total Protein Albumin Vitamin B12 Urine Color Urine Appearance Urine pH Ur Specific [place] Urine Protein Urine Glucose (UA) Urine Ketones Urine Blood Urine Nitrite Urine Bilirubin Urine Urobilinogen Ur Leukocyte Esterase Urine WBC (Auto) Urine RBC (Auto) Urine Casts (Auto) U Pathogenic Cast Auto U Epithel Cells (Auto) U Sm Round Cell (Auto) Urine Crystals (Auto) Urine Bacteria (Auto) Urine Yeast (Auto) Monoscreen Blood Type Cancelled Antibody Screen 03/11/19 03/11/19 03/11/19 07:00 07:00 07:00 WBC 4.0 RBC 3.38 L Hgb 9.8 L Hct 29.8 L D MCV 88.2 MCH 29.1 MCHC 33.0 RDW 13.8 Plt Count 68 L D MPV 8.2 D Absolute Neuts (auto) Neutrophils % Lymphocytes % Monocytes % Eosinophils % Basophils % Nucleated RBC % PT with INR INR PTT (Actin FS) Fibrinogen D-Dimer Sodium 143 Potassium 3.9 Chloride 111 H Carbon Dioxide 28 Anion Gap 4 L BUN 24.5 H Creatinine 0.8 Est GFR (CKD-EPI)AfAm 89.04 Est GFR (CKD-EPI)NonAf 76.83 Random Glucose 100 Calcium 8.7 Phosphorus 4.7 Magnesium 2.4 Total Bilirubin 0.4 AST 20 ALT 35 Alkaline Phosphatase 73 Total Protein 6.9 Albumin 3.9 Vitamin B12 > 2000 H Urine Color Urine Appearance Urine pH Ur Specific [place] Urine Protein Urine Glucose (UA) Urine Ketones Urine Blood Urine Nitrite Urine Bilirubin Urine Urobilinogen Ur Leukocyte Esterase Urine WBC (Auto) Urine RBC (Auto) Urine Casts (Auto) U Pathogenic Cast Auto U Epithel Cells (Auto) U Sm Round Cell (Auto) Urine Crystals (Auto) Urine Bacteria (Auto) Urine Yeast (Auto) Monoscreen Negative Blood Type Antibody Screen Active Medications Generic Name Dose Route Start Last Admin Trade Name Freq PRN Reason Stop Dose Admin Chlorhexidine Gluconate 1 applic 03/11/19 22:00 Hibiclens For Decolonization - TP HS [facility] Mupirocin 1 applic 03/11/19 10:00 Bactroban Ointment (For Decolonization) - NS 03/16/19 09:59 BID [facility] ASSESSMENT/PLAN: 68F with no pmh presented to the ED with sore throat and cough since Tuesday as well as bleeding from her mouth and admitted for evaluation and treatment of severe thrombocytopenia Neurologic -On CT head, small lesion in periventricular white matter is too small to characterize, may have tiny subdural hemorrhage 3mm superiorly (irregularity of the falx) -neurosurg consulted -patient has mild headache, if worsens will get repeat head CT Cardiovascular -no acute abnormalities Pulmonary -no acute abnormalities Gastrointestinal -no acute abnormalities Heme-onc -Severe thrombocytopenia, initially presented with a platelet count of 1, repeat 68 after 3 U platelets, total of 6 ordered -ordered peripheral smear -splenic US ordered -hepatitis panel, HIV ordered -ordered respiratory viral panel -immune thrombocytopenia is diagnosis of exclusion -heme onc consultation, will order steroids/IVIG -will repeat H&H later this afternoon and in AM Disposition -continue to monitor in ICU Visit type - Emergency Visit Emergency Visit: No - New Patient This patient is new to me today: No - Critical Care Critical Care patient: Yes Total Critical Care Time (in minutes): 40 Critical Care Statement: The care of this patient involved high complexity decision making to prevent further life threatening deterioration of the patient 's condition and/or to evaluate & treat vital organ system(s) failure or risk of failure.
[2019-03-11] MEDS ORDERED: DEXAMETHASONE SOD PHOSPHATE 20 MG/5 ML VIAL IVPB SCH (11:00)
--- NOTE | 2019-03-11 11:13 | CONSULT ---
Consult Consult Specialty:: Heme Referred by:: Dr. Jennings Reason for Consultation:: Thrombocytopenia - History of Present Illness Chief Complaint: Bleeding from mouth History of Present Illness: 68F with no PMHx presents with bleeding from for 4 days and found to have severe thrombocytopenia (plt count 1). CTH showed a tiny hyperdense focus in the right anterior periventricular white matter that is too small to characterize but may represent a tiny focus of hemorrhage versus calcification. There is also minimal hyperdense irregularity of the falx ( cannot exclude a tiny 3 mm subdural hemorrhage). Pt denies prior history of blood disorders, including low platelets, autoimmune issues or bleeding. Denies fevers, night sweats chills but endorses mild cough, mild frontal MARIE and rash for 4 days. No melena, hematochezia, and epistaxis. Not on any medications or supplements. Denies weakness, parasthesias. Has not had any recent travel. - Alcohol/Substance Use Hx Alcohol Use: No - Smoking History Smoking history: Never smoked Have you smoked in the past 12 months: No Home Medications - Allergies Allergies/Adverse Reactions: Allergies Allergy/AdvReac Type Severity Reaction Status Date / Time No Known Allergies Allergy Verified 03/11/19 00:00 - Home Medications Home Medications: Ambulatory Orders NK [No Known Home Medication] 03/11/19 Review of Systems - Review of Systems Constitutional: reports: No Symptoms Eyes: reports: No Symptoms Cardiovascular: reports: No Symptoms Respiratory: reports: Cough. denies: SOB Gastrointestinal: reports: No Symptoms. denies: Melena, Rectal Bleeding, Vomiting Blood Hematology/Lymphatic: reports: Easily Bruised, Excessive Bleeding Physical Exam Vital Signs: Vital Signs Temperature 98 F 03/11/19 10:04 Pulse Rate 55 L 03/11/19 06:00 Respiratory Rate 18 03/11/19 09:00 Blood Pressure 111/88 03/11/19 06:00 O2 Sat by Pulse Oximetry (%) 96 03/11/19 09:00 Constitutional: Yes: Well Nourished, No Distress Eyes: Yes: Conjunctiva Clear HENT: Yes: Other (multiple blood blisters with no active bleeding involvign oral mucosa (palate, tongue)) Cardiovascular: Yes: WNL, Regular Rate and Rhythm Respiratory: Yes: Regular, CTA Bilaterally Gastrointestinal: Yes: WNL, Soft. No: Palpable Mass, Splenomegaly, Tenderness Edema: No Integumentary: Yes: Bruising, Rash (petechial) Labs: CBC, BMP 03/11/19 07:00 03/11/19 07:00 Assessment/Plan 68F with no PMHx presented with bleeding from oral mucosa and was found to have plt count of 1. Peripheral smear confirms severe thrombocytopenia, no plt clumps, no RBC fragments, no immature cells, few atypical lymphs. 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 Pt receiving plt transfusions due to concern for possible small ICH/SDH. No neurologic deficits. Plan for interval CTH. For the treatment of ITP, ordered decadron 40 mg IV daily x 4 days and IVIG 1 g/ kg daily x 2 days Neurosurgical evaluation pending. If there is no suspicion of bleeding, plt transfusion is not indicated in ITP. If it's suspected, IVIG may help with response to transfusion. Agree with evaluation for secondary causes including HIV, HBV, HCV. Also please repeat PTT and, if still prolonged, will need mixing study and evaluation for lupus anticoagulant. Pt denied hx of clots and miscarriages.
[2019-03-11] MEDS: DEXAMETHASONE SOD PHOSPHATE 10 MG/1 ML VIAL IVPB SCH (12:12)
[2019-03-11] MEDS: diphenhydrAMINE HCL 25 MG CAPSULE (FP) PO SCH (12:12)
[2019-03-11] MEDS: ACETAMINOPHEN 325 MG TABLET (FP) PO SCH (12:12)
[2019-03-11] MEDS: IMMUN GLOB G(IGG)/PRO/IGA 0-50 600 ML, IMMUN GLOB G(IGG)/PRO/IGA 0-50 100 ML IVPB SCH (12:13)
[2019-03-11] MEDS: MUPIROCIN 2% TOPICAL OINTMENT FOR DECOLONIZATION NS SCH ×2 (12:15→22:00)
--- NOTE | 2019-03-11 15:21 | PN ---
Teaching Attending Note ATTENDING PHYSICIAN STATEMENT I saw and evaluated the patient. I reviewed the resident's note and discussed the case with the resident. I agree with the resident's findings and plan as documented. SUBJECTIVE: OBJECTIVE: ASSESSMENT AND PLAN:
--- NOTE | 2019-03-11 15:31 | PN ---
Progress Note (short form) - Note Progress Note: SUBJECTIVE: 68 year old female with no significant PMH presents with headache and oral mucosal bleeding for several days, started after 1 week of cough and URI symptoms. No recent medication history. No hematemesis, melena, hematochezia /hematuria. No fever/chills. OBJECTIVE: Afebrile, Hemodynamically Stable, Neurologically intact. Last Vital Signs Temp Pulse Resp BP Pulse Ox 98 F 62 17 126/90 96 03/11/19 10:04 03/11/19 12:00 03/11/19 12:00 03/11/19 12:00 03/11/19 09:00 HEENT - Atraumatic, Normocephalic. Intra-oral mucosal and tongue petechial lesions. Heart - S1, S2, soft SM Lungs - clear to auscultation Abdomen - Soft, non-tender. Bowel Sounds normal. Extremities - some petechiae. No calf swelling/tenderness Skin - some petechiae, no ecchymoses. Neuro - AAO x 3. Tone/Power normal all 4 extremities. Laboratory Results - last 24 hr 03/11/19 03/11/19 03/11/19 00:35 00:35 00:35 WBC 4.9 RBC 3.98 Hgb 11.6 Hct 35.3 MCV 88.6 MCH 29.1 MCHC 32.9 RDW 13.9 Plt Count 1 L* MPV 12.8 H Absolute Neuts (auto) 2.7 Neutrophils % 54.8 Lymphocytes % 28.1 Monocytes % 11.7 H Eosinophils % 4.8 H Basophils % 0.6 Nucleated RBC % 0 PT with INR 11.20 INR 0.95 PTT (Actin FS) Fibrinogen D-Dimer Sodium 144 Potassium 4.8 Chloride 112 H Carbon Dioxide 29 Anion Gap 4 L BUN 23.5 H Creatinine 0.9 Est GFR (CKD-EPI)AfAm 77.22 Est GFR (CKD-EPI)NonAf 66.63 Random Glucose 123 H Calcium 8.5 Phosphorus Magnesium Total Bilirubin 0.4 AST 20 ALT 35 Alkaline Phosphatase 78 Total Protein 7.1 Albumin 4.0 Vitamin B12 Urine Color Urine Appearance Urine pH Ur Specific [place] Urine Protein Urine Glucose (UA) Urine Ketones Urine Blood Urine Nitrite Urine Bilirubin Urine Urobilinogen Ur Leukocyte Esterase Urine WBC (Auto) Urine RBC (Auto) Urine Casts (Auto) U Pathogenic Cast Auto U Epithel Cells (Auto) U Sm Round Cell (Auto) Urine Crystals (Auto) Urine Bacteria (Auto) Urine Yeast (Auto) Monoscreen HIV Ag/Ab Interpret HIV-2 Antibody HIV-2 Antibody Conf HIV 1&2 Ag/Ab, 4th Gen HIV 1&2 Antibody Screen HIV 1&2 Ab Final [facility] HIV P24 Antigen Blood Type Antibody Screen 03/11/19 03/11/19 03/11/19 00:35 00:50 01:31 WBC RBC Hgb Hct MCV MCH MCHC RDW Plt Count MPV Absolute Neuts (auto) Neutrophils % Lymphocytes % Monocytes % Eosinophils % Basophils % Nucleated RBC % PT with INR INR PTT (Actin FS) Fibrinogen D-Dimer Sodium Potassium Chloride Carbon Dioxide Anion Gap BUN Creatinine Est GFR (CKD-EPI)AfAm Est GFR (CKD-EPI)NonAf Random Glucose Calcium Phosphorus Magnesium Total Bilirubin AST ALT Alkaline Phosphatase Total Protein Albumin Vitamin B12 Urine Color Dk yellow Urine Appearance Cloudy Urine pH 5.0 Ur Specific [place] 1.037 H Urine Protein 2+ H Urine Glucose (UA) Negative Urine Ketones 1+ H Urine Blood Trace Urine Nitrite Negative Urine Bilirubin 1+ H Urine Urobilinogen 1.0 Ur Leukocyte Esterase 1+ H Urine WBC (Auto) 24 Urine RBC (Auto) 9 Urine Casts (Auto) 81 U Pathogenic Cast Auto None U Epithel Cells (Auto) 9.6 U Sm Round Cell (Auto) None Urine Crystals (Auto) None Urine Bacteria (Auto) 37.3 Urine Yeast (Auto) None Monoscreen HIV Ag/Ab Interpret HIV-2 Antibody HIV-2 Antibody Conf HIV 1&2 Ag/Ab, 4th Gen HIV 1&2 Antibody Screen HIV 1&2 Ab Final [facility] HIV P24 Antigen Blood Type A POSITIVE A POSITIVE Antibody Screen Negative Negative 03/11/19 03/11/19 03/11/19 01:53 03:16 07:00 WBC RBC Hgb Hct MCV MCH MCHC RDW Plt Count MPV Absolute Neuts (auto) Neutrophils % Lymphocytes % Monocytes % Eosinophils % Basophils % Nucleated RBC % PT with INR INR PTT (Actin FS) 41.4 H Fibrinogen 455.0 D-Dimer 996 H Sodium Potassium Chloride Carbon Dioxide Anion Gap BUN Creatinine Est GFR (CKD-EPI)AfAm Est GFR (CKD-EPI)NonAf Random Glucose Calcium Phosphorus Magnesium Total Bilirubin AST ALT Alkaline Phosphatase Total Protein Albumin Vitamin B12 Urine Color Urine Appearance Urine pH Ur Specific [place] Urine Protein Urine Glucose (UA) Urine Ketones Urine Blood Urine Nitrite Urine Bilirubin Urine Urobilinogen Ur Leukocyte Esterase Urine WBC (Auto) Urine RBC (Auto) Urine Casts (Auto) U Pathogenic Cast Auto U Epithel Cells (Auto) U Sm Round Cell (Auto) Urine Crystals (Auto) Urine Bacteria (Auto) Urine Yeast (Auto) Monoscreen HIV Ag/Ab Interpret HIV-2 Antibody HIV-2 Antibody Conf HIV 1&2 Ag/Ab, 4th Gen HIV 1&2 Antibody Screen HIV 1&2 Ab Final Interp HIV P24 Antigen Blood Type Cancelled Antibody Screen 03/11/19 03/11/19 03/11/19 07:00 07:00 07:00 WBC 4.0 RBC 3.38 L Hgb 9.8 L Hct 29.8 L D MCV 88.2 MCH 29.1 MCHC 33.0 RDW 13.8 Plt Count 68 L D MPV 8.2 D Absolute Neuts (auto) Neutrophils % Lymphocytes % Monocytes % Eosinophils % Basophils % Nucleated RBC % PT with INR INR PTT (Actin FS) Fibrinogen D-Dimer Sodium 143 Potassium 3.9 Chloride 111 H Carbon Dioxide 28 Anion Gap 4 L BUN 24.5 H Creatinine 0.8 Est GFR (CKD-EPI)AfAm 89.04 Est GFR (CKD-EPI)NonAf 76.83 Random Glucose 100 Calcium 8.7 Phosphorus 4.7 Magnesium 2.4 Total Bilirubin 0.4 AST 20 ALT 35 Alkaline Phosphatase 73 Total Protein 6.9 Albumin 3.9 Vitamin B12 > 2000 H Urine Color Urine Appearance Urine pH Ur Specific [place] Urine Protein Urine Glucose (UA) Urine Ketones Urine Blood Urine Nitrite Urine Bilirubin Urine Urobilinogen Ur Leukocyte Esterase Urine WBC (Auto) Urine RBC (Auto) Urine Casts (Auto) U Pathogenic Cast Auto U Epithel Cells (Auto) U Sm Round Cell (Auto) Urine Crystals (Auto) Urine Bacteria (Auto) Urine Yeast (Auto) Monoscreen Negative HIV Ag/Ab Interpret HIV-2 Antibody HIV-2 Antibody Conf HIV 1&2 Ag/Ab, 4th Gen HIV 1&2 Antibody Screen HIV 1&2 Ab Final Interp HIV P24 Antigen Blood Type Antibody Screen 03/11/19 03/11/19 08:30 09:19 WBC RBC Hgb Hct MCV MCH MCHC RDW Plt Count MPV Absolute Neuts (auto) Neutrophils % Lymphocytes % Monocytes % Eosinophils % Basophils % Nucleated RBC % PT with INR INR PTT (Actin FS) Fibrinogen D-Dimer Sodium Potassium Chloride Carbon Dioxide Anion Gap BUN Creatinine Est GFR (CKD-EPI)AfAm Est GFR (CKD-EPI)NonAf Random Glucose Calcium Phosphorus Magnesium Total Bilirubin AST ALT Alkaline Phosphatase Total Protein Albumin Vitamin B12 Urine Color Urine Appearance Urine pH Ur Specific [place] Urine Protein Urine Glucose (UA) Urine Ketones Urine Blood Urine Nitrite Urine Bilirubin Urine Urobilinogen Ur Leukocyte Esterase Urine WBC (Auto) Urine RBC (Auto) Urine Casts (Auto) U Pathogenic Cast Auto U Epithel Cells (Auto) U Sm Round Cell (Auto) Urine Crystals (Auto) Urine Bacteria (Auto) Urine Yeast (Auto) Monoscreen HIV Ag/Ab Interpret Cancelled HIV-2 Antibody Cancelled HIV-2 Antibody Conf Cancelled HIV 1&2 Ag/Ab, 4th Gen Cancelled HIV 1&2 Antibody Screen Negative HIV 1&2 Ab Final Interp Cancelled HIV P24 Antigen Negative Blood Type Antibody Screen Current Medications Generic Name Dose Route Start Last Admin Trade Name Freq PRN Reason Stop Dose Admin Acetaminophen 650 mg 03/11/19 11:30 03/11/19 12:12 Tylenol - PO 03/12/19 11:31 650 mg DAILY@1130 [facility] Administration Chlorhexidine Gluconate 1 applic 03/11/19 22:00 Hibiclens For Decolonization - TP HS [facility] Dexamethasone Sodium Phosphate 40 mg 03/11/19 11:30 03/11/19 12:12 Decadron Injection - IVPB 03/15/19 11:29 40 mg DAILY [facility] Administration Diphenhydramine HCl 25 mg 03/11/19 11:30 03/11/19 12:12 Benadryl - PO 03/12/19 11:31 25 mg DAILY@1130 [facility] Administration Immune Globulin/ Immune 700 mls @ 100 mls/hr 03/11/19 12:00 03/11/19 12:13 Globulin IVPB 03/12/19 18:59 100 mls/hr DAILY@1200 [facility] Administration Mupirocin 1 applic 03/11/19 10:00 03/11/19 12:15 Bactroban Ointment (For Decolonization) - NS 03/16/19 09:59 1 applic BID AZUCENA Administration Home Medications Medication Instructions Recorded NK [No Known Home Medication] 03/11/19 ASSESSMENT/PLAN 68 year old female with no significant PMH presents with headache and oral mucosal bleeding for several days, started after 1 week of cough and URI symptoms. No recent medication history. No hematemesis, melena, hematochezia/ hematuria. No fever/chills. No joint pain/swelling/tenderness. No cardiopulmonary of renal disease history. 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 Receiving Platelet transfusion x 6. Will monitor H/H/Plts. WBC wnl. Autoimmune Work-up requested. Viral Screen pending. HIV negative. Abdominal/ Splenic US pending. Peripheral smear reported as severe thrombocytopenia, no clumping, no RBC fragments, no immature cells, few atypical lymphocytes. No renal dysfunction, fibrinogen levels and PT normal. No history of weight loss, night sweats or leukopenia/leukocytosis or anemia, and given essentially normal smear, no immediate indication for bone marrow biopsy at this time. Evaluated by Hematology - to start empiric treatment for likely ITP with Steroid and IVIG. CT Head - multiple small hyperdense foci, suspicious for hemorrhages. For regular neuro-observations and serial CT Head imaging. Neurosurgery consulted. Visit type - Emergency Visit Emergency Visit: Yes ED Registration Date: 03/11/19 Care time: The patient presented to the Emergency Department on the above date and was hospitalized for further evaluation of their emergent condition. - New Patient This patient is new to me today: Yes Date on this admission: 03/12/19 - Critical Care Critical Care patient: No - Discharge Referral Referred to [facility] No
[2019-03-11 17:55] LABS: RBC 3.17 M/mm3 (3.60-5.2)
[2019-03-11 18:13] LABS: HEMOGLOBIN 9.2 GM/dL (10.7-15.3); MCH 29.2 pg (25.7-33.7); MEAN CELL VOLUME 88.5 fl (80-96); MEAN PLT VOLUME 8.6 fl (7.5-11.1); PLATELET COUNT 65 K/MM3 (134-434); WHITE BLOOD COUNT 4.3 K/mm3 (4.0-10.0)
[2019-03-11] MEDS ORDERED: CHLORHEXIDINE GLUCONATE 4% CLEANSER FOR DECOLONIZATION TP SCH (22:00)
[2019-03-12 05:47] LABS: INR 1.07 (0.83-1.09); PROTHROMBIN TIME (PATIENT) 12.6 SEC (9.7-13.0)
[2019-03-12 05:50] LABS: ACTIVATED PTT 33.7 SECONDS (25.2-36.5)
[2019-03-12 06:26] LABS: HEMATOCRIT 27.6 % (32.4-45.2); HEMOGLOBIN 9.4 GM/dL (10.7-15.3); MCH 29.9 pg (25.7-33.7); MCHC 33.8 g/dl (32.0-36.0); MEAN CELL VOLUME 88.5 fl (80-96); MEAN PLT VOLUME 9.4 fl (7.5-11.1); RBC 3.12 M/mm3 (3.60-5.2); RDW 13.5 % (11.6-15.6)
[2019-03-12 06:33] LABS: PLATELET COUNT 16 K/MM3 (134-434)
[2019-03-12] MEDS ORDERED: PT OWN MED DRAWER 7, Y5N ONE (09:19)
[2019-03-12] MEDS: DEXAMETHASONE SOD PHOSPHATE 10 MG/1 ML VIAL IVPB SCH (09:34)
[2019-03-12] MEDS: MUPIROCIN 2% TOPICAL OINTMENT FOR DECOLONIZATION NS SCH (09:35)
[2019-03-12] MEDS: ACETAMINOPHEN 325 MG TABLET (FP) PO SCH (11:28)
[2019-03-12] MEDS: diphenhydrAMINE HCL 25 MG CAPSULE (FP) PO SCH (11:29)
--- NOTE | 2019-03-12 11:50 | PN ---
Teaching Attending Note Name of Resident: Efrain Thompson ATTENDING PHYSICIAN STATEMENT I saw and evaluated the patient. I reviewed the resident's note and discussed the case with the resident. I agree with the resident's findings and plan as documented. SUBJECTIVE: Pt seen and examined in the ICU. Started on high dose decadron, IVIG by hematology. No obvious bleeding. CT head appears stable, official read pending. Still with mild headache but improving. OBJECTIVE: Vital Signs Period Temp Pulse Resp BP Sys/Farooq Pulse Ox Last 24 Hr 98.6 F-98.6 F 46-76 11-25 122-153/50-90 98-98 Intake & Output 03/09/19 03/10/19 03/11/19 03/12/19 23:59 23:59 23:59 23:59 Intake Total 2875 Balance 2875 Weight 69 kg 70.1 kg Gen: NAD at rest Heart: RRR Lung: decreased breath sounds at the bases Abd: soft, nontender Ext: no edema Skin: diffuse petechiae CBC, BMP 03/12/19 05:00 03/11/19 07:00 Active Medications Chlorhexidine Gluconate (Hibiclens For Decolonization -) 1 applic TP HS [facility] Last Admin: 03/11/19 22:00 Dose: 1 applic Dexamethasone Sodium Phosphate (Decadron Injection -) 40 mg IVPB DAILY [facility] Stop: 03/15/19 11:29 Last Admin: 03/12/19 09:34 Dose: 40 mg Immune Globulin/ Immune (Globulin) 700 mls @ 100 mls/hr IVPB DAILY@1200 [facility] Stop: 03/12/19 18:59 Last Admin: 03/11/19 12:13 Dose: 100 mls/hr Mupirocin (Bactroban Ointment (For Decolonization) -) 1 applic NS BID [facility] Stop: 03/16/19 09:59 Last Admin: 03/12/19 09:35 Dose: 1 applic ASSESSMENT AND PLAN: Severe Thrombocytopenia Anemia r/o ITP Subdural Hematoma - continue decadron, IVIG per hematology - f/u repeat CT head read - monitor CBC - transfuse as needed - viral studies pending - can monitor on floor if CT head stable
[2019-03-12] MEDS: IMMUN GLOB G(IGG)/PRO/IGA 0-50 600 ML, IMMUN GLOB G(IGG)/PRO/IGA 0-50 100 ML IVPB SCH (12:21)
[2019-03-12 14:07] LABS: HEP.C VIRUS AB 0.1 s/co ratio (0.0-0.9)
--- NOTE | 2019-03-12 14:20 | PN ---
Physical Exam: SUBJECTIVE: Patient seen and examined at bedside. Pt states she still has a headache, abdominal pain, and rash on her legs. pt is in no acute distress. Pt states she still has a little bleeding from her mouth. pt denies chest pain, n/ v OBJECTIVE: Vital Signs Period Temp Pulse Resp BP Sys/Farooq Pulse Ox Last 24 Hr 98.6 F-98.6 F 46-70 11-25 122-153/50-68 98-98 GENERAL: The patient is awake, alert, and fully oriented, in no acute distress. HEAD: Normal with no signs of trauma. EYES: extraocular movements intact, sclera anicteric, conjunctiva clear. No ptosis. LUNGS: Breath sounds equal, clear to auscultation bilaterally, no wheezes, no crackles, no accessory muscle use. HEART: Regular rate and rhythm, S1, S2 without murmur, rub or gallop. ABDOMEN: Soft, nontender, nondistended, normoactive bowel sounds EXTREMITIES: 2+ pulses, warm, well-perfused, no edema. diffuse petechiae B/L LE PSYCH: Normal mood, normal affect. SKIN: Warm, dry, normal turgor, diffuse petechiae B/L LE Laboratory Last Values WBC 5.0 K/mm3 (4.0-10.0) 03/12/19 05:00 RBC 3.12 M/mm3 (3.60-5.2) L 03/12/19 05:00 Hgb 9.4 GM/dL (10.7-15.3) L 03/12/19 05:00 Hct 27.6 % (32.4-45.2) L 03/12/19 05:00 MCV 88.5 fl (80-96) 03/12/19 05:00 MCH 29.9 pg (25.7-33.7) 03/12/19 05:00 MCHC 33.8 g/dl (32.0-36.0) 03/12/19 05:00 RDW 13.5 % (11.6-15.6) 03/12/19 05:00 Plt Count 16 K/MM3 (134-434) L* D 03/12/19 05:00 MPV 9.4 fl (7.5-11.1) 03/12/19 05:00 Absolute Neuts (auto) 2.7 K/mm3 (1.5-8.0) 03/11/19 00:35 Neutrophils % 54.8 % (42.8-82.8) 03/11/19 00:35 Lymphocytes % 28.1 % (8-40) 03/11/19 00:35 Monocytes % 11.7 % (3.8-10.2) H 03/11/19 00:35 Eosinophils % 4.8 % (0-4.5) H 03/11/19 00:35 Basophils % 0.6 % (0-2.0) 03/11/19 00:35 Nucleated RBC % 0 % (0-0) 03/11/19 00:35 PT with INR 12.60 SEC (9.7-13.0) 03/12/19 05:00 INR 1.07 (0.83-1.09) 03/12/19 05:00 PTT (Actin FS) 33.7 SECONDS (25.2-36.5) 03/12/19 05:00 Fibrinogen 455.0 mg/dL (238-498) 03/11/19 01:53 D-Dimer 996 ng/ml (0-500) H 03/11/19 01:53 Sodium 143 mmol/L (136-145) 03/11/19 07:00 Potassium 3.9 mmol/L (3.5-5.1) 03/11/19 07:00 Chloride 111 mmol/L (98-107) H 03/11/19 07:00 Carbon Dioxide 28 mmol/L (21-32) 03/11/19 07:00 Anion Gap 4 MMOL/L (8-16) L 03/11/19 07:00 BUN 24.5 mg/dL (7-18) H 03/11/19 07:00 Creatinine 0.8 mg/dL (0.55-1.3) 03/11/19 07:00 Est GFR (CKD-EPI)AfAm 89.04 03/11/19 07:00 Est GFR (CKD-EPI)NonAf 76.83 03/11/19 07:00 Random Glucose 100 mg/dL (74-106) 03/11/19 07:00 Calcium 8.7 mg/dL (8.5-10.1) 03/11/19 07:00 Phosphorus 4.7 mg/dL (2.5-4.9) 03/11/19 07:00 Magnesium 2.4 mg/dL (1.8-2.4) 03/11/19 07:00 Total Bilirubin 0.4 mg/dL (0.2-1) 03/11/19 07:00 AST 20 U/L (15-37) 03/11/19 07:00 ALT 35 U/L (13-61) 03/11/19 07:00 Alkaline Phosphatase 73 U/L (45-117) 03/11/19 07:00 Total Protein 6.9 g/dl (6.4-8.2) 03/11/19 07:00 Albumin 3.9 g/dl (3.4-5.0) 03/11/19 07:00 Vitamin B12 > 2000 pg/ml (193-986) H 03/11/19 07:00 Urine Color Dk yellow 03/11/19 00:50 Urine Appearance Cloudy 03/11/19 00:50 Urine pH 5.0 (5.0-8.0) 03/11/19 00:50 Ur Specific [place] 1.037 (1.010-1.035) H 03/11/19 00:50 Urine Protein 2+ (NEGATIVE) H 03/11/19 00:50 Urine Glucose (UA) Negative (NEGATIVE) 03/11/19 00:50 Urine Ketones 1+ (NEGATIVE) H 03/11/19 00:50 Urine Blood Trace (NEGATIVE) 03/11/19 00:50 Urine Nitrite Negative (NEGATIVE) 03/11/19 00:50 Urine Bilirubin 1+ (NEGATIVE) H 03/11/19 00:50 Urine Urobilinogen 1.0 mg/dL (0.2-1.0) 03/11/19 00:50 Ur Leukocyte Esterase 1+ (NEGATIVE) H 03/11/19 00:50 Urine WBC (Auto) 24 /hpf (0-5) 03/11/19 00:50 Urine RBC (Auto) 9 /hpf (0-4) 03/11/19 00:50 Urine Casts (Auto) 81 /lpf (0-8) 03/11/19 00:50 U Pathogenic Cast Auto None /lpf (NEGATIVE) 03/11/19 00:50 U Epithel Cells (Auto) 9.6 /HPF (0-5/HPF) 03/11/19 00:50 U Sm Round Cell (Auto) None 03/11/19 00:50 Urine Crystals (Auto) None /hpf 03/11/19 00:50 Urine Bacteria (Auto) 37.3 /hpf (NEGATIVE) 03/11/19 00:50 Urine Yeast (Auto) None (NEGATIVE) 03/11/19 00:50 Monoscreen Negative (NEGATIVE) 03/11/19 07:00 HIV Ag/Ab Interpret Cancelled 03/11/19 08:30 HIV-2 Antibody Cancelled 03/11/19 08:30 HIV-2 Antibody Conf Cancelled 03/11/19 08:30 HIV 1&2 Ag/Ab, 4th Gen Cancelled 03/11/19 08:30 HIV 1&2 Antibody Screen Negative 03/11/19 09:19 HIV 1&2 Ab Final Interp Cancelled 03/11/19 08:30 HIV P24 Antigen Negative 03/11/19 09:19 Blood Type A POSITIVE 03/11/19 01:31 Antibody Screen Negative 03/11/19 01:31 Active Medications Generic Name Dose Route Start Last Admin Trade Name Jose Luis PRN Reason Stop Dose Admin Chlorhexidine Gluconate 1 applic 03/11/19 22:00 03/11/19 22:00 Hibiclens For Decolonization - TP 1 applic HS [facility] Administration Dexamethasone Sodium Phosphate 40 mg 03/11/19 11:30 03/12/19 09:34 Decadron Injection - IVPB 03/15/19 11:29 40 mg DAILY [facility] Administration Immune Globulin/ Immune 700 mls @ 100 mls/hr 03/11/19 12:00 03/12/19 12:21 Globulin IVPB 03/12/19 18:59 100 mls/hr DAILY@1200 [facility] Administration Mupirocin 1 applic 03/11/19 10:00 03/12/19 09:35 Bactroban Ointment (For Decolonization) - NS 03/16/19 09:59 1 applic BID [facility] Administration Head CT: Again seen is mild dense thickening of the anterior falx cerebri suspicious for a tiny subdural bleed, grossly unchanged. Small focal density in the right frontal lobe anterior to the right lateral ventricle is less defined than the prior exam and possibly represents tiny focus of parenchymal contusion. No new foci of intra or extra-axial density seen to suggest new areas of bleeding. No edema or mass effect seen. Abdominal U/S Distended urinary bladder limiting its evaluation without gross evidence of intraluminal stones or wall thickening mild fatty infiltration of the liver versus hepatocellular disease. Please correlate with liver enzymes. Exophytic left renal lower pole simple cyst measuring 3.4 x 2.6 cm. Normal size spleen with a homogeneous echotexture. ASSESSMENT/PLAN: 68 yo F with no significant medical history who presented to the ED with non resolving bleeding from her mouth. Pt also complains of headache and stomach pain. pt stated she had a URI for 4 days. In the ED, Platelet count was 1000. Pt was admitted to ICU where she was given 6 units of platelets with inadequate response. Severe Thrombocytopenia -c/w IVG and Decdron as per hermatology -rpt CT head unchanged -continue monitoring CBC -Hepatitis neg -HIV negative -PT: 12.6,INR: 1.07, PTT: 33.7 Anemia -continue monitoring H/H Visit type - Emergency Visit Emergency Visit: Yes ED Registration Date: 03/11/19 Care time: The patient presented to the Emergency Department on the above date and was hospitalized for further evaluation of their emergent condition. - New Patient This patient is new to me today: Yes Date on this admission: 03/12/19 - Critical Care Critical Care patient: Yes Total Critical Care Time (in minutes): 36 Critical Care Statement: The care of this patient involved high complexity decision making to prevent further life threatening deterioration of the patient 's condition and/or to evaluate & treat vital organ system(s) failure or risk of failure. - Discharge Referral Referred to [facility] No ATTENDING PHYSICIAN STATEMENT I saw and evaluated the patient. I reviewed the resident's note and discussed the case with the resident. I agree with the resident's findings and plan as documented. SUBJECTIVE: OBJECTIVE: ASSESSMENT AND PLAN:
--- NOTE | 2019-03-12 14:34 | PN ---
Physical Exam: SUBJECTIVE: Overnight, patient did not have any acute events. Received a total of 6 units of platelets. Patient seen and examined at the bedside, denies any pain, sob, cp. States that her headache has mostly resolved. States that she did have some blood with coughing yesterday, however has resolved this morning. Repeat head CT showed no progression of bleeds. [facility] OBJECTIVE: Vital Signs Period Temp Pulse Resp BP Sys/Farooq Pulse Ox Last 24 Hr 98.6 F-98.6 F 46-70 11- 122-153/50-68 98-98 GENERAL: The patient is awake, alert, and fully oriented, in no acute distress. [place] speaking. HEAD: Normal with no signs of trauma. EYES: PERRL, extraocular movements intact, sclera anicteric, conjunctiva clear. No ptosis. MOUTH: Extensive bite lesions noted on R sided buccal mucosa, not bleeding. Lesion noted on L side of tongue, no bleeding noted NECK: Trachea midline, full range of motion, supple. LUNGS: Breath sounds equal, clear to auscultation bilaterally, no wheezes, no crackles, no accessory muscle use. HEART: Regular rate and rhythm, S1, S2 without murmur, rub or gallop. ABDOMEN: Soft, nontender, nondistended, normoactive bowel sounds, no guarding, no rebound, no hepatosplenomegaly, no masses. EXTREMITIES: 2+ pulses, warm, well-perfused, no edema. NEUROLOGICAL: Cranial nerves II through XII grossly intact. Normal speech, muscle strength full throughout bilaterally. PSYCH: Normal mood, normal affect. SKIN: Warm, dry, normal turgor, petechia noted on bilateral legs and abdomen. Laboratory Results - last 24 hr 03/11/19 03/11/19 03/12/19 08:30 17:43 05:00 WBC 4.3 5.0 RBC 3.17 L 3.12 L Hgb 9.2 L 9.4 L Hct 28.0 L 27.6 L MCV 88.5 88.5 MCH 29.2 29.9 MCHC 33.0 33.8 RDW 14.0 13.5 Plt Count 65 L 16 L* D MPV 8.6 9.4 PT with INR INR PTT (Actin FS) Hepatitis A IgM Ab Negative Hep Bs Antigen Negative Hep B Core IgM Ab Negative Hepatitis C Antibody 0.1 03/12/19 05:00 WBC RBC Hgb Hct MCV MCH MCHC RDW Plt Count MPV PT with INR 12.60 INR 1.07 PTT (Actin FS) 33.7 Hepatitis A IgM Ab Hep Bs Antigen Hep B Core IgM Ab Hepatitis C Antibody CBC, BMP 03/12/19 05:00 03/11/19 07:00 Active Medications Generic Name Dose Route Start Last Admin Trade Name Freq PRN Reason Stop Dose Admin Chlorhexidine Gluconate 1 applic 03/11/19 22:00 03/11/19 22:00 Hibiclens For Decolonization - TP 1 applic HS [facility] Administration Dexamethasone Sodium Phosphate 40 mg 03/11/19 11:30 03/12/19 09:34 Decadron Injection - IVPB 03/15/19 11:29 40 mg DAILY [facility] Administration Immune Globulin/ Immune 700 mls @ 100 mls/hr 03/11/19 12:00 03/12/19 12:21 Globulin IVPB 03/12/19 18:59 100 mls/hr DAILY@1200 [facility] Administration Mupirocin 1 applic 03/11/19 10:00 03/12/19 09:35 Bactroban Ointment (For Decolonization) - NS 03/16/19 09:59 1 applic BID [facility] Administration ASSESSMENT/PLAN: Kennedy Salmon is a 68 year old female with no significant past medical history who was admitted to the ICU after extensive bleeding from her buccal mucosa and noted with severely decreased platelets likely secondary to ITP. Idiopathic Thrombocytopenic Purpura NEUROLOGIC - stable - head CT showed tiny hyperdense focus possibly a tiny hemorrhage - repeat head CT did not show any acute changes CARDIOLOGY - stable RESPIRATORY - stable RENAL - stable GASTROINTESTINAL - stable GENITOURINARY - patient requested Pap smear, please f/u with outpatient [employer] INFECTIOUS DISEASE - no acute issues ENDOCRINE - stable HEMATOLOGY - on admission, platelets of 1 - received 6 units of platelets - platelets trended 1--> 68--> 65--> 16 - hematology consulted, recs appreciated - started on Decadron 40mg IV daily x 4 days - started on IVIG 1g/kg daily x 2 days - PTT within normal limits - secondary causes of ITP --> HCV, HBV, HIV all negative - JUS pending - continue to monitor H/H and transfuse as needed MUSCULOSKELETAL - stable PSYCHIATRY - stable F/E/N - no standing fluids - repletes electrolytes as necessary - regular diet LINES - 20 guage RAC placed 03/11 PROPHYLAXIS - no prophylaxis due to low platelets CODE - full code DISPO - stable for transfer to [facility]-surg CASE DISCUSSED WITH DR. CHEEMA AND PRIMARY TEAM PRISCILLA CANSECO DO - PGY-1 INTERNAL MEDICINE Problem List - Problems (1) Thrombocytopenia Code(s): D69.6 - THROMBOCYTOPENIA, UNSPECIFIED Visit type - Emergency Visit Emergency Visit: No - New Patient This patient is new to me today: Yes Date on this admission: 03/12/19 - Critical Care Critical Care patient: Yes Total Critical Care Time (in minutes): 35 Critical Care Statement: The care of this patient involved high complexity decision making to prevent further life threatening deterioration of the patient 's condition and/or to evaluate & treat vital organ system(s) failure or risk of failure.
--- NOTE | 2019-03-12 15:42 | PN ---
Teaching Attending Note Name of Resident: Marleny Carrero ATTENDING PHYSICIAN STATEMENT I saw and evaluated the patient. I reviewed the resident's note and discussed the case with the resident. I agree with the resident's findings and plan as documented. SUBJECTIVE: Some ongoing blood from oral mucosa. Mild headache. No ches tpain/ palpitations/SOB. No visual disturbance or limb numbness/weakness. OBJECTIVE: Afebrile, Hemodynamically Stable, Neurologically intact. Last Vital Signs Temp Pulse Resp BP Pulse Ox 98.6 F 63 22 H 139/60 98 03/12/19 10:00 03/12/19 12:00 03/12/19 12:00 03/12/19 12:00 03/12/19 09:00 HEENT - Atraumatic, Normocephalic. Intra-oral mucosal and tongue petechial lesions. Heart - S1, S2, soft SM Lungs - clear to auscultation Abdomen - Soft, non-tender. Bowel Sounds normal. Extremities - some petechiae. No calf swelling/tenderness Skin - some petechiae, no ecchymoses. Neuro - AAO x 3. Tone/Power normal all 4 extremities. Laboratory Results - last 24 hr 03/11/19 03/11/19 03/11/19 07:00 08:30 17:43 WBC 4.3 RBC 3.17 L Hgb 9.2 L Hct 28.0 L MCV 88.5 MCH 29.2 MCHC 33.0 RDW 14.0 Plt Count 65 L MPV 8.6 PT with INR INR PTT (Actin FS) Hepatitis A IgM Ab Negative Hep Bs Antigen Negative Hep B Core IgM Ab Negative Negative Hepatitis C Antibody 0.1 03/12/19 03/12/19 05:00 05:00 WBC 5.0 RBC 3.12 L Hgb 9.4 L Hct 27.6 L MCV 88.5 MCH 29.9 MCHC 33.8 RDW 13.5 Plt Count 16 L* D MPV 9.4 PT with INR 12.60 INR 1.07 PTT (Actin FS) 33.7 Hepatitis A IgM Ab Hep Bs Antigen Hep B Core IgM Ab Hepatitis C Antibody Current Medications Generic Name Dose Route Start Last Admin Trade Name Freq PRN Reason Stop Dose Admin Chlorhexidine Gluconate 1 applic 03/11/19 22:00 03/11/19 22:00 Hibiclens For Decolonization - TP 1 applic HS AZUCENA Administration Dexamethasone Sodium Phosphate 40 mg 03/11/19 11:30 03/12/19 09:34 Decadron Injection - IVPB 03/15/19 11:29 40 mg DAILY AZUCENA Administration Immune Globulin/ Immune 700 mls @ 100 mls/hr 03/11/19 12:00 03/12/19 12:21 Globulin IVPB 03/12/19 18:59 100 mls/hr DAILY@1200 AZUCENA Administration Mupirocin 1 applic 03/11/19 10:00 03/12/19 09:35 Bactroban Ointment (For Decolonization) - NS 03/16/19 09:59 1 applic BID AZUCENA Administration ASSESSMENT/PLAN 68 year old female with no significant PMH presents with headache and oral mucosal bleeding for several days, started after 1 week of cough and URI symptoms. No recent medication history. No hematemesis, melena, hematochezia/ hematuria. No fever/chills. No joint pain/swelling/tenderness. No cardiopulmonary of renal disease history. 1. 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 Plts 16 s/p 6 units Platelets. Will monitor H/H/Plts. WBC wnl. Autoimmune Work-up requested. Viral Screen pending. HIV negative. Abdominal/Splenic US - normal spleen, fatty liver. Peripheral smear reported as severe thrombocytopenia, no clumping, no RBC fragments, no immature cells, few atypical lymphocytes. No renal dysfunction. Fibrinogen levels and PT normal. No history of weight loss, night sweats or leukopenia/leukocytosis, and given essentially normal smear, no immediate indication for bone marrow biopsy at this time. Evaluated by Hematology - started on treatment for likely ITP with Steroid and IVIG. 2. Intracranial Hemorrhage sec to Thrombocytopenia. No history of trauma. CT Head - multiple small hyperdense foci, suspicious for hemorrhages - no significant change on subsequent CT. For regular neuro-observations. Awaiting Neurosurgery consult and further recommendations. 3. L Renal Cyst 3.4x2.6cm - incidental finding on US. For out-patient follow up. DVT Px - SCDs.
--- NOTE | 2019-03-12 16:17 | PN ---
Progress Note (short form) - Note Progress Note: Patient seen and examined Denies any complaints AFVSS Cor: RSR, No murmurs, No gallops Lungs: Clear to P&A Abd: Soft, Normal bowel sounds, No organomegaly Ext:No significant edema. + petechial rash Labs/Meds reviewed A/P 68F with no PMHx presented with bleeding from oral mucosa and was found to have plt count of 1. Peripheral smear confirms severe thrombocytopenia, no plt clumps, no RBC fragments, no immature cells, few atypical lymphs. 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 decadron 40 mg IV daily x 4 days and s/p IVIG 1 g/kg daily x 2 days(03/11 and 03/12) right frontal lobe hyperdensity ---monitor seen by neurosurgery transfuse 1 unit moodonor platelets
--- NOTE | 2019-03-12 18:53 | EKG ---
Test Reason : Blood Pressure : / mmHG Vent. Rate : 051 BPM Atrial Rate : 051 BPM P-R Int : 152 ms QRS Dur : 084 ms QT Int : 470 ms P-R-T Axes : 025 -03 026 degrees QTc Int : 433 ms SINUS BRADYCARDIA MINIMAL VOLTAGE CRITERIA FOR LVH, MAY BE NORMAL VARIANT BORDERLINE ECG WHEN COMPARED WITH ECG OF 11-MAR-2019 03:02, NO SIGNIFICANT CHANGE WAS FOUND Confirmed by ALKA GARAY MD ([id number]) on 03/12/2019 6:52:56 PM Referred By: PATRICIA CLEMENTE DR Confirmed By:ALKA GARAY MD
--- NOTE | 2019-03-12 22:21 | CONSULT ---
Consult - text type - Consultation Consultation Note: NEUROSURGERY CONSULTATION Kennedy Salmon is a 68 year old Latin female who presented to the [facility] ER with bleeding from her mouth. The patient was found to have previously undiagnosed Thrombocytopenia. Due to complaints of headaches, she was evaluated with Head CT. This revealed a hyperdensity within the Right frontal lobe, adjacent to the Right lateral ventricle. There was also some hyperdenisty near the vertex which may represent calcifications or subdural blood. The patient was admitted to the ICU and remained Neurologically nonfocal. Repeat Head CT from today shows partial resolution of the Right frontal density and that the vertex blood appears largely unchanged. On Neurological Examination, she is awake and alert and converses fluently in [place]. She has no weakness and no pronator drift. There is no sensory abnormality and no extinction to double simultaneous stimulation. She is currently undergoing evaluation and treatment for what may represent ITP by the Hematology service. She has been able to be removed from the ICU to a regular room. At this point, there is no acute Neurosurgical intervention indicated or planned. I agree with the Hematology evaluation and treatment. Will continue to follow with the team.
--- NOTE | 2019-03-13 01:01 | PN ---
Physical Exam: SUBJECTIVE: Patient seen and examined. No acute events overnight. Offers no complaints. Not bleeding. s/p 6 U Platelets s/p IVIG OBJECTIVE: Vital Signs Period Temp Pulse Resp BP Sys/Farooq Pulse Ox Last 24 Hr 98.1 F-98.6 F 46-64 11-24 115-145/50-68 96-98 HEENT: NC/AT. oral mucosal and tongue petechial lesions. Heart: RRR, S1, S2, no murmurs appreciated Lungs - CTA b/l, no rales rhonchi or wheezing Abdomen - Soft, non-tender. Bowel Sounds normal. Extremities - petechiae. No calf swelling/tenderness. no edema Skin - some petechiae, no ecchymoses. Neuro - AAO x 3. normal strength throughout Laboratory Results - last 24 hr 03/11/19 03/11/19 03/12/19 07:00 08:30 05:00 WBC 5.0 RBC 3.12 L Hgb 9.4 L Hct 27.6 L MCV 88.5 MCH 29.9 MCHC 33.8 RDW 13.5 Plt Count 16 L* D MPV 9.4 PT with INR INR PTT (Actin FS) Hepatitis A IgM Ab Negative Hep Bs Antigen Negative Hep B Core IgM Ab Negative Negative Hepatitis C Antibody 0.1 03/12/19 05:00 WBC RBC Hgb Hct MCV MCH MCHC RDW Plt Count MPV PT with INR 12.60 INR 1.07 PTT (Actin FS) 33.7 Hepatitis A IgM Ab Hep Bs Antigen Hep B Core IgM Ab Hepatitis C Antibody Active Medications Generic Name Dose Route Start Last Admin Trade Name Freq PRN Reason Stop Dose Admin Dexamethasone Sodium Phosphate 40 mg 03/13/19 10:00 Decadron Injection - IVPB 03/15/19 11:29 DAILY AZUCENA ASSESSMENT/PLAN: 68 year old female with no significant PMH presents with headache and oral mucosal bleeding for several days, started after 1 week of cough and URI symptoms. Fount with PLT of 1 in the ER and multiple small hyperdense foci, suspicious for hemorrhages on Head CT No recent medication history. No hematemesis, melena, hematochezia/hematuria. No fever/chills. No joint pain/swelling/tenderness. No cardiopulmonary of renal disease history. #Acute Intracranial and mucosal bleeding secondary to Thrombocytopenia #ITP -s/p IVIG -s/p 6 Units Platelets -Plt today 16 after platelet transfusion -Viral Screen pending -HIV negative -Abdominal/Splenic US - normal spleen, fatty liver. -Head CT: multiple small hyperdense foci, suspicious for hemorrhages - no significant change on subsequent CT. -Peripheral smear reported as severe thrombocytopenia, no clumping, no RBC fragments, no immature cells, few atypical lymphocytes. -No renal dysfunction. Fibrinogen levels and PT normal. -No history of weight loss, night sweats or leukopenia/leukocytosis, and given essentially normal smear, no immediate indication for bone marrow biopsy at this time. -Cont. Decadron 40mg Daily, IVIG -monitor H&H, Platelets -monitor for signs of bleeding Visit type - Emergency Visit Emergency Visit: Yes ED Registration Date: 03/11/19 Care time: The patient presented to the Emergency Department on the above date and was hospitalized for further evaluation of their emergent condition. - New Patient This patient is new to me today: Yes Date on this admission: 03/13/19 - Critical Care Critical Care patient: Yes Total Critical Care Time (in minutes): 35 Critical Care Statement: The care of this patient involved high complexity decision making to prevent further life threatening deterioration of the patient 's condition and/or to evaluate & treat vital organ system(s) failure or risk of failure. ATTENDING PHYSICIAN STATEMENT I saw and evaluated the patient. I reviewed the resident's note and discussed the case with the resident. I agree with the resident's findings and plan as documented. SUBJECTIVE: OBJECTIVE: ASSESSMENT AND PLAN:
[2019-03-13 07:37] LABS: HEMOGLOBIN 8.4 GM/dL (10.7-15.3); MCH 29.7 pg (25.7-33.7); MCHC 33.7 g/dl (32.0-36.0); MEAN CELL VOLUME 88.1 fl (80-96); MEAN PLT VOLUME 9.5 fl (7.5-11.1); RBC 2.84 M/mm3 (3.60-5.2); RDW 13.7 % (11.6-15.6); WHITE BLOOD COUNT 11.2 K/mm3 (4.0-10.0)
[2019-03-13 07:48] LABS: BLOOD UREA NITROGEN 26.4 mg/dL (7-18); CALCIUM 8.3 mg/dL (8.5-10.1); CREATININE 0.8 mg/dL (0.55-1.3); MAGNESIUM 2.2 mg/dL (1.8-2.4); PHOSPHOROUS 3.5 mg/dL (2.5-4.9); POTASSIUM 3.8 mmol/L (3.5-5.1)
[2019-03-13] MEDS ORDERED: PT OWN MED DRAWER 7, Y5N ONE (09:38)
[2019-03-13] MEDS: PANTOPRAZOLE 40 MG TABLET (FP) PO SCH (09:52)
[2019-03-13] MEDS: DEXAMETHASONE SOD PHOSPHATE 10 MG/1 ML VIAL IVPB SCH (10:07)
--- NOTE | 2019-03-13 11:52 | PN ---
Teaching Attending Note Name of Resident: Marleny Carrero ATTENDING PHYSICIAN STATEMENT I saw and evaluated the patient. I reviewed the resident's note and discussed the case with the resident. I agree with the resident's findings and plan as documented. SUBJECTIVE:reports some minor bleeding when brushing her teeth. denies Cp, SOB< fever, chills, N/V/C/D, hematuria, BRBPR or melena OBJECTIVE: Last Vital Signs Temp Pulse Resp BP Pulse Ox 98.6 F 48 L 18 158/66 96 03/13/19 11:10 03/13/19 11:10 03/13/19 11:10 03/13/19 11:10 03/12/19 21:00 General NAD HEENT superficial ulcer on L later side of tongue CV S1 S2 RRR no murmur/rub/gallop abdomen soft NT/ND Skin scattered petechae on inner arms B/L diffuse petechiae on B/L LE ASSESSMENT AND PLAN: 68 year old female with no significant PMH presents with headache and oral mucosal bleeding for several days, started after 1 week of cough and URI symptoms. No recent medication history. No hematemesis, melena, hematochezia/ hematuria. No fever/chills. No joint pain/swelling/tenderness. No cardiopulmonary of renal disease history. 1. Acute Intracranial and mucosal bleeding secondary to Severe Thrombocytopenia -likely ITP. s/p 6 units of platelets, IVIG x2 and decadron 40mg today is day 2. platelet count noted to drop to 5K today. will give another unit of platelets. repeat later. monitor hgb. pt reports that petechae are improving. HIV/HBV/HCV all negative. u/s negative for spleenomegaly. hematology on board 2. Intracranial Hemorrhage sec to Thrombocytopenia. no trauma. no deficits. seen by neurosurg. no intervention necessary at this time. 3. Oral lesion- no active bleeding. will give magic mouthwash. good oral hygiene. can follow up with ENT as outpatient if not healing 4. L Renal Cyst 3.4x2.6cm - incidental finding on US. For out-patient follow up. 5. DVT Px - SCDs.
[2019-03-13] MEDS ORDERED: IMMUN GLOB G(IGG)/PRO/IGA 0-50 600 ML, IMMUN GLOB G(IGG)/PRO/IGA 0-50 100 ML IVPB SCH (12:00)
--- NOTE | 2019-03-13 12:08 | EKG ---
Test Reason : Blood Pressure : / mmHG Vent. Rate : 057 BPM Atrial Rate : 057 BPM P-R Int : 184 ms QRS Dur : 084 ms QT Int : 442 ms P-R-T Axes : 032 005 035 degrees QTc Int : 430 ms SINUS BRADYCARDIA OTHERWISE NORMAL ECG NO PREVIOUS ECGS AVAILABLE Confirmed by Harpal Bryson ([id number]) on 03/13/2019 12:08:12 PM Referred By: Confirmed By:Harpal Bryson
--- NOTE | 2019-03-13 12:47 | PN ---
Physical Exam: SUBJECTIVE: Patient seen and examined at bedside. pt has no acute complaints. pt states that rash and itchiness is improving OBJECTIVE: Vital Signs Period Temp Pulse Resp BP Sys/Farooq Pulse Ox Last 24 Hr 98.1 F-99.9 F 48-64 18-22 115-158/51-84 95-96 GENERAL: The patient is awake, alert, and fully oriented, in no acute distress. LUNGS: Breath sounds equal, clear to auscultation bilaterally, no wheezes, no crackles, no accessory muscle use. HEART: Regular rate and rhythm, S1, S2 without murmur, rub or gallop. ABDOMEN: Soft, tender to palpation on RUQ, nondistended, normoactive bowel sounds EXTREMITIES: 2+ pulses, warm, well-perfused, no edema. NEUROLOGICAL: Cranial nerves II through XII grossly intact. Normal speech, gait not observed. PSYCH: Normal mood, normal affect. SKIN: Warm, dry, normal turgor, red pinpoint rash on extremeties improving Laboratory Last Values WBC 11.7 K/mm3 (4.0-10.0) H 03/13/19 14:45 RBC 2.92 M/mm3 (3.60-5.2) L 03/13/19 14:45 Hgb 8.6 GM/dL (10.7-15.3) L 03/13/19 14:45 Hct 25.4 % (32.4-45.2) L 03/13/19 14:45 MCV 87.1 fl (80-96) 03/13/19 14:45 MCH 29.5 pg (25.7-33.7) 03/13/19 14:45 MCHC 33.9 g/dl (32.0-36.0) 03/13/19 14:45 RDW 13.8 % (11.6-15.6) 03/13/19 14:45 Plt Count 15 K/MM3 (134-434) L* D 03/13/19 14:45 MPV 8.3 fl (7.5-11.1) D 03/13/19 14:45 Absolute Neuts (auto) 2.7 K/mm3 (1.5-8.0) 03/11/19 00:35 Neutrophils % 54.8 % (42.8-82.8) 03/11/19 00:35 Lymphocytes % 28.1 % (8-40) 03/11/19 00:35 Monocytes % 11.7 % (3.8-10.2) H 03/11/19 00:35 Eosinophils % 4.8 % (0-4.5) H 03/11/19 00:35 Basophils % 0.6 % (0-2.0) 03/11/19 00:35 Nucleated RBC % 0 % (0-0) 03/11/19 00:35 PT with INR 12.60 SEC (9.7-13.0) 03/12/19 05:00 INR 1.07 (0.83-1.09) 03/12/19 05:00 PTT (Actin FS) 33.7 SECONDS (25.2-36.5) 03/12/19 05:00 Fibrinogen 455.0 mg/dL (238-498) 03/11/19 01:53 D-Dimer 996 ng/ml (0-500) H 03/11/19 01:53 Sodium 140 mmol/L (136-145) 03/13/19 06:55 Potassium 3.8 mmol/L (3.5-5.1) 03/13/19 06:55 Chloride 110 mmol/L (98-107) H 03/13/19 06:55 Carbon Dioxide 23 mmol/L (21-32) 03/13/19 06:55 Anion Gap 8 MMOL/L (8-16) 03/13/19 06:55 BUN 26.4 mg/dL (7-18) H 03/13/19 06:55 Creatinine 0.8 mg/dL (0.55-1.3) 03/13/19 06:55 Est GFR (CKD-EPI)AfAm 89.04 03/13/19 06:55 Est GFR (CKD-EPI)NonAf 76.83 03/13/19 06:55 Random Glucose 212 mg/dL (74-106) H 03/13/19 06:55 Calcium 8.3 mg/dL (8.5-10.1) L 03/13/19 06:55 Phosphorus 3.5 mg/dL (2.5-4.9) 03/13/19 06:55 Magnesium 2.2 mg/dL (1.8-2.4) 03/13/19 06:55 Total Bilirubin 0.4 mg/dL (0.2-1) 03/11/19 07:00 AST 20 U/L (15-37) 03/11/19 07:00 ALT 35 U/L (13-61) 03/11/19 07:00 Alkaline Phosphatase 73 U/L (45-117) 03/11/19 07:00 Total Protein 6.9 g/dl (6.4-8.2) 03/11/19 07:00 Albumin 3.9 g/dl (3.4-5.0) 03/11/19 07:00 Vitamin B12 > 2000 pg/ml (193-986) H 03/11/19 07:00 TSH 0.65 uIU/ml (0.358-3.74) 03/13/19 06:55 Urine Color Dk yellow 03/11/19 00:50 Urine Appearance Cloudy 03/11/19 00:50 Urine pH 5.0 (5.0-8.0) 03/11/19 00:50 Ur Specific [place] 1.037 (1.010-1.035) H 03/11/19 00:50 Urine Protein 2+ (NEGATIVE) H 03/11/19 00:50 Urine Glucose (UA) Negative (NEGATIVE) 03/11/19 00:50 Urine Ketones 1+ (NEGATIVE) H 03/11/19 00:50 Urine Blood Trace (NEGATIVE) 03/11/19 00:50 Urine Nitrite Negative (NEGATIVE) 03/11/19 00:50 Urine Bilirubin 1+ (NEGATIVE) H 03/11/19 00:50 Urine Urobilinogen 1.0 mg/dL (0.2-1.0) 03/11/19 00:50 Ur Leukocyte Esterase 1+ (NEGATIVE) H 03/11/19 00:50 Urine WBC (Auto) 24 /hpf (0-5) 03/11/19 00:50 Urine RBC (Auto) 9 /hpf (0-4) 03/11/19 00:50 Urine Casts (Auto) 81 /lpf (0-8) 03/11/19 00:50 U Pathogenic Cast Auto None /lpf (NEGATIVE) 03/11/19 00:50 U Epithel Cells (Auto) 9.6 /HPF (0-5/HPF) 03/11/19 00:50 U Sm Round Cell (Auto) None 03/11/19 00:50 Urine Crystals (Auto) None /hpf 03/11/19 00:50 Urine Bacteria (Auto) 37.3 /hpf (NEGATIVE) 03/11/19 00:50 Urine Yeast (Auto) None (NEGATIVE) 03/11/19 00:50 Hepatitis A IgM Ab Negative (Negative) 03/11/19 08:30 Hep Bs Antigen Negative (Negative) 03/11/19 08:30 Hep B Core IgM Ab Negative (Negative) 03/11/19 08:30 Hepatitis C Antibody 0.1 s/co ratio (0.0-0.9) 03/11/19 08:30 Monoscreen Negative (NEGATIVE) 03/11/19 07:00 HIV Ag/Ab Interpret Cancelled 03/11/19 08:30 HIV-2 Antibody Cancelled 03/11/19 08:30 HIV-2 Antibody Conf Cancelled 03/11/19 08:30 HIV 1&2 Ag/Ab, 4th Gen Cancelled 03/11/19 08:30 HIV 1&2 Antibody Screen Negative 03/11/19 09:19 HIV 1&2 Ab Final Interp Cancelled 03/11/19 08:30 HIV P24 Antigen Negative 03/11/19 09:19 Blood Type A POSITIVE 03/11/19 01:31 Antibody Screen Negative 03/11/19 01:31 Active Medications Generic Name Dose Route Start Last Admin Trade Name Freq PRN Reason Stop Dose Admin Dexamethasone Sodium Phosphate 40 mg 03/13/19 10:00 03/13/19 10:07 Decadron Injection - IVPB 03/15/19 11:29 40 mg DAILY AZUCENA Administration Lidocaine/Aluminum/Magnesium/Simeth 5 ml 03/13/19 18:00 Magic Mouthwash *Sjr Formula* - MM Q6HPO AZUCENA Pantoprazole Sodium 40 mg 03/13/19 10:00 03/13/19 09:52 Protonix - PO 40 mg DAILY AZUCENA Administration ASSESSMENT/PLAN: Head CT: Again seen is mild dense thickening of the anterior falx cerebri suspicious for a tiny subdural bleed, grossly unchanged. Small focal density in the right frontal lobe anterior to the right lateral ventricle is less defined than the prior exam and possibly represents tiny focus of parenchymal contusion. No new foci of intra or extra-axial density seen to suggest new areas of bleeding. No edema or mass effect seen. Abdominal U/S Distended urinary bladder limiting its evaluation without gross evidence of intraluminal stones or wall thickening mild fatty infiltration of the liver versus hepatocellular disease. Please correlate with liver enzymes. Exophytic left renal lower pole simple cyst measuring 3.4 x 2.6 cm. Normal size spleen with a homogeneous echotexture. ASSESSMENT/PLAN: 68 yo F with no significant medical history who presented to the ED with non resolving bleeding from her mouth. Pt also complains of headache and stomach pain. pt stated she had a URI for 4 days. In the ED, Platelet count was 1000. Pt was admitted to ICU where she was given 6 units of platelets with inadequate response. Severe Thrombocytopenia -c/w Decadron as per hermatology, start PPI -rpt CT head unchanged -continue monitoring CBC, plt today was 5000. 1 unit [place] [id number]. -Hepatitis neg -HIV negative -PT: 12.6,INR: 1.07, PTT: 33.7 Anemia -continue monitoring H/H Visit type - Emergency Visit Emergency Visit: No - New Patient This patient is new to me today: No - Critical Care Critical Care patient: No - Discharge Referral Referred to [facility] Med P.C.: No ATTENDING PHYSICIAN STATEMENT I saw and evaluated the patient. I reviewed the resident's note and discussed the case with the resident. I agree with the resident's findings and plan as documented. SUBJECTIVE: OBJECTIVE: ASSESSMENT AND PLAN:
--- NOTE | 2019-03-13 12:58 | PN ---
Physical Exam: SUBJECTIVE: Heme/ONC Patient seen and examined. No acute events overnight. Patient offers no complaints. Plt count 5 this AM OBJECTIVE: Vital Signs Period Temp Pulse Resp BP Sys/Farooq Pulse Ox Last 24 Hr 98.1 F-99.9 F 48-64 18-22 115-158/51-84 95-96 GENERAL: The patient is awake, alert, and fully oriented, in no acute distress. LUNGS: Breath sounds equal, clear to auscultation bilaterally, no wheezes, no crackles, no accessory muscle use. HEART: Regular rate and rhythm, S1, S2 without murmur, rub or gallop. ABDOMEN: Soft, tender to palpation on RUQ, nondistended, normoactive bowel sounds EXTREMITIES: 2+ pulses, warm, well-perfused, no edema. NEUROLOGICAL: Cranial nerves II through XII grossly intact. Normal speech, gait not observed. PSYCH: Normal mood, normal affect. SKIN: Warm, dry, normal turgor, scattered petichiae Laboratory Results - last 24 hr 03/11/19 03/11/19 03/13/19 07:00 08:30 06:55 WBC RBC Hgb Hct MCV MCH MCHC RDW Plt Count MPV Sodium 140 Potassium 3.8 Chloride 110 H Carbon Dioxide 23 Anion Gap 8 BUN 26.4 H Creatinine 0.8 Est GFR (CKD-EPI)AfAm 89.04 Est GFR (CKD-EPI)NonAf 76.83 Random Glucose 212 H Calcium 8.3 L Phosphorus 3.5 Magnesium 2.2 TSH 0.65 Hepatitis A IgM Ab Negative Hep Bs Antigen Negative Hep B Core IgM Ab Negative Negative Hepatitis C Antibody 0.1 03/13/19 06:55 WBC 11.2 H RBC 2.84 L Hgb 8.4 L Hct 25.0 L MCV 88.1 MCH 29.7 MCHC 33.7 RDW 13.7 Plt Count 5 L* D MPV 9.5 Sodium Potassium Chloride Carbon Dioxide Anion Gap BUN Creatinine Est GFR (CKD-EPI)AfAm Est GFR (CKD-EPI)NonAf Random Glucose Calcium Phosphorus Magnesium TSH Hepatitis A IgM Ab Hep Bs Antigen Hep B Core IgM Ab Hepatitis C Antibody Active Medications Generic Name Dose Route Start Last Admin Trade Name Freq PRN Reason Stop Dose Admin Dexamethasone Sodium Phosphate 40 mg 03/13/19 10:00 03/13/19 10:07 Decadron Injection - IVPB 03/15/19 11:29 40 mg DAILY AZUCENA Administration Lidocaine/Aluminum/Magnesium/Simeth 5 ml 03/13/19 18:00 Magic Mouthwash *Sjr Formula* - MM Q6HPO AZUCENA Pantoprazole Sodium 40 mg 03/13/19 10:00 03/13/19 09:52 Protonix - PO 40 mg DAILY AZUCENA Administration ASSESSMENT/PLAN: #Acute Intracranial and mucosal bleeding secondary to Thrombocytopenia #ITP -s/p 2 days IVIG (total 140gms) -Plt today 5. No response to IVIG. -s/p 6 Units Platelets. -Order 1U platelet this AM. 1 Unit tonight. -Viral Screen negative -HIV negative -Abdominal/Splenic US - normal spleen, fatty liver. -Head CT: multiple small hyperdense foci, suspicious for hemorrhages - no significant change on subsequent CT. -Peripheral smear reported as severe thrombocytopenia, no clumping, no RBC fragments, no immature cells, few atypical lymphocytes. -No renal dysfunction. Fibrinogen levels and PT normal. -No history of weight loss, night sweats or leukopenia/leukocytosis, and given essentially normal smear, no immediate indication for bone marrow biopsy at this time. -Cont. Decadron 40mg Daily -monitor H&H, Platelets -monitor for signs of bleeding Visit type - Emergency Visit Emergency Visit: Yes ED Registration Date: 03/11/19 Care time: The patient presented to the Emergency Department on the above date and was hospitalized for further evaluation of their emergent condition. - New Patient This patient is new to me today: No - Critical Care Critical Care patient: No ATTENDING PHYSICIAN STATEMENT I saw and evaluated the patient. I reviewed the resident's note and discussed the case with the resident. I agree with the resident's findings and plan as documented. SUBJECTIVE: OBJECTIVE: ASSESSMENT AND PLAN:
[2019-03-13 13:32] LABS: PLATELET COUNT 5 K/MM3 (134-434)
[2019-03-13 15:16] LABS: HEMATOCRIT 25.4 % (32.4-45.2); HEMOGLOBIN 8.6 GM/dL (10.7-15.3); MCH 29.5 pg (25.7-33.7); MCHC 33.9 g/dl (32.0-36.0); MEAN CELL VOLUME 87.1 fl (80-96); MEAN PLT VOLUME 8.3 fl (7.5-11.1); RBC 2.92 M/mm3 (3.60-5.2); RDW 13.8 % (11.6-15.6); WHITE BLOOD COUNT 11.7 K/mm3 (4.0-10.0)
[2019-03-13 15:22] LABS: PLATELET COUNT 15 K/MM3 (134-434)
[2019-03-13] MEDS: MAG HYDROX/ALH/SMC/DPHA/LIDO 240 ML MOUTHWASH MM SCH ×2 (18:52→23:55)
--- NOTE | 2019-03-13 20:16 | PN ---
Teaching Attending Note Name of Resident: Bianca Burns ATTENDING PHYSICIAN STATEMENT I saw and evaluated the patient. I reviewed the resident's note and discussed the case with the resident. I agree with the resident's findings and plan as documented. SUBJECTIVE: Patient seen and examined Offers no complaints No headache No bleeding manifestations S/p gammaglobulin and receiving decadron 40 mg daily Continuing with platelets in view of hemorrhages on CT brain imaging. OBJECTIVE: ASSESSMENT AND PLAN:
[2019-03-14] MEDS: MAG HYDROX/ALH/SMC/DPHA/LIDO 240 ML MOUTHWASH MM SCH ×3 (05:08→17:42)
--- NOTE | 2019-03-14 08:18 | PN ---
Physical Exam: SUBJECTIVE: Patient seen and examined at bedside. pt states that her rash is improving and oral mucosal bleeding has improved. pt states that she feels a little dizzy and sometimes has palpitations but she thinks its because of the frequent blood draws. OBJECTIVE: Vital Signs Period Temp Pulse Resp BP Sys/Farooq Pulse Ox Last 24 Hr 97.8 F-99.2 F 44-57 18-20 126-168/57-84 95-95 GENERAL: The patient is awake, alert, and fully oriented, in no acute distress. LUNGS: Breath sounds equal, clear to auscultation bilaterally, no wheezes, no crackles, no accessory muscle use. HEART: Regular rate and rhythm, S1, S2 without murmur, rub or gallop. ABDOMEN: Soft, nontender, nondistended, normoactive bowel sounds, no guarding. EXTREMITIES: 2+ pulses, warm, well-perfused, no edema. PSYCH: Normal mood, normal affect. SKIN: Warm, dry, normal turgor, pinpoint rash on B/L LE. rash on abdomen improving. Active Medications Generic Name Dose Route Start Last Admin Trade Name Freq PRN Reason Stop Dose Admin Dexamethasone Sodium Phosphate 40 mg 03/13/19 10:00 03/13/19 10:07 Decadron Injection - IVPB 03/15/19 11:29 40 mg DAILY AZUCENA Administration Lidocaine/Aluminum/Magnesium/Simeth 5 ml 03/13/19 18:00 03/14/19 05:08 Magic Mouthwash *Sjr Formula* - MM 5 ml Q6HPO AZUCENA Administration Pantoprazole Sodium 40 mg 03/13/19 10:00 03/13/19 09:52 Protonix - PO 40 mg DAILY AZUCENA Administration Head CT: Again seen is mild dense thickening of the anterior falx cerebri suspicious for a tiny subdural bleed, grossly unchanged. Small focal density in the right frontal lobe anterior to the right lateral ventricle is less defined than the prior exam and possibly represents tiny focus of parenchymal contusion. No new foci of intra or extra-axial density seen to suggest new areas of bleeding. No edema or mass effect seen. Abdominal U/S Distended urinary bladder limiting its evaluation without gross evidence of intraluminal stones or wall thickening mild fatty infiltration of the liver versus hepatocellular disease. Please correlate with liver enzymes. Exophytic left renal lower pole simple cyst measuring 3.4 x 2.6 cm. Normal size spleen with a homogeneous echotexture. ASSESSMENT/PLAN: 68 yo F with no significant medical history who presented to the ED with non resolving bleeding from her mouth. Pt also complains of headache and stomach pain. pt stated she had a URI for 4 days. In the ED, Platelet count was 1000. Pt was admitted to ICU where she was given 6 units of platelets with inadequate response. While on the medicine floors, on 03/13, pt received 2 more units of platelets. Pt BP is also elevated continuously since admission. This mornings BP 160/53 with pulse of 88. Severe Thrombocytopenia -c/w Decadron as per hermatology, start PPI -s/p 2 days of IVIG -rpt CT head unchanged -continue monitoring CBC, plt today was 5000. 1 unit platelets given [place] [address]. Awaiting the platelet count from today -Hepatitis neg -JUS negative -HIV negative -PT: 12.6,INR: 1.07, PTT: 33.7 Anemia -continue monitoring H/H ATTENDING PHYSICIAN STATEMENT I saw and evaluated the patient. I reviewed the resident's note and discussed the case with the resident. I agree with the resident's findings and plan as documented. SUBJECTIVE: OBJECTIVE: ASSESSMENT AND PLAN:
[2019-03-14 08:24] LABS: BASO % 0.1 % (0-2.0); HEMATOCRIT 25.8 % (32.4-45.2); HEMOGLOBIN 8.8 GM/dL (10.7-15.3); LYMPH % 7.2 % (8-40); MCH 29.7 pg (25.7-33.7); MCHC 34.1 g/dl (32.0-36.0); MEAN PLT VOLUME 10.1 fl (7.5-11.1); MONO % 6.8 % (3.8-10.2); NEUT % 85.9 % (42.8-82.8); RBC 2.96 M/mm3 (3.60-5.2); RDW 13.5 % (11.6-15.6); WHITE BLOOD COUNT 9.5 K/mm3 (4.0-10.0)
[2019-03-14 08:44] LABS: BLOOD UREA NITROGEN 23.4 mg/dL (7-18); CALCIUM 8.3 mg/dL (8.5-10.1); CREATININE 0.8 mg/dL (0.55-1.3); MAGNESIUM 2.5 mg/dL (1.8-2.4); PHOSPHOROUS 3.4 mg/dL (2.5-4.9); POTASSIUM 3.5 mmol/L (3.5-5.1)
[2019-03-14 10:26] LABS: ANISOCYTOSIS 2+; MACROCYTOSIS 0; PLATELET ESTIMATE DECREASED; TEAR DROP CELLS 1+
[2019-03-14 10:29] LABS: PLATELET COUNT 7 K/MM3 (134-434)
[2019-03-14] MEDS ORDERED: PT OWN MED DRAWER 7, Y5N ONE (10:54)
[2019-03-14] MEDS: PANTOPRAZOLE 40 MG TABLET (FP) PO SCH (10:57)
[2019-03-14] MEDS: DEXAMETHASONE SOD PHOSPHATE 10 MG/1 ML VIAL IVPB SCH (10:59)
--- NOTE | 2019-03-14 12:06 | PN ---
Teaching Attending Note Name of Resident: Marleny Carrero ATTENDING PHYSICIAN STATEMENT I saw and evaluated the patient. I reviewed the resident's note and discussed the case with the resident. I agree with the resident's findings and plan as documented. SUBJECTIVE:no more bleeding when brushing her teeth. reports rash has improved. denies Cp, SOB, fever, chills, N/V/C/D OBJECTIVE: Last Vital Signs Temp Pulse Resp BP Pulse Ox 97.8 F 57 L 18 126/57 L 95 03/14/19 06:00 03/14/19 06:00 03/14/19 06:00 03/14/19 06:00 03/13/19 21:00 General NAD Skin scattered petechae on inner arms B/L diffuse petechiae on B/L LE ASSESSMENT AND PLAN: 68 year old female with no significant PMH presents with headache and oral mucosal bleeding for several days, started after 1 week of cough and URI symptoms. No recent medication history. No hematemesis, melena, hematochezia/ hematuria. No fever/chills. No joint pain/swelling/tenderness. No cardiopulmonary of renal disease history. 1. Acute Intracranial and mucosal bleeding secondary to Severe Thrombocytopenia -likely ITP. had 2 units of platelets given yesterday for a total of 8 this hospital stay. IVIG x2 and decadron 40mg today is day 3. platelet count continues to trend down. HIV/HBV/HCV all negative. u/s negative for spleenomegaly. hematology on board 2. Intracranial Hemorrhage sec to Thrombocytopenia. no trauma. no deficits. seen by neurosurg. no intervention necessary at this time. 3. Oral lesion- no active bleeding. cont with magic mouthwash. good oral hygiene. can follow up with ENT as outpatient if not healing 4. L Renal Cyst 3.4x2.6cm - incidental finding on US. For out-patient follow up. 5. DVT Px - SCDs.
[2019-03-14 12:27] VITALS: BMI 26.4
--- NOTE | 2019-03-14 15:42 | PN ---
Physical Exam: SUBJECTIVE: Patient seen and examined. Offers no complaints. Says she feels good. Denies symptoms. s/p 2 Units platelets yesterday with no response. Platelets went down to 7 from 15. OBJECTIVE: Vital Signs Period Temp Pulse Resp BP Sys/Farooq Pulse Ox Last 24 Hr 97.8 F-99.1 F 44-57 18-20 126-168/57-74 95-97 GENERAL: The patient is awake, alert, and fully oriented, in no acute distress. LUNGS: Breath sounds equal, clear to auscultation bilaterally, no wheezes, no crackles, no accessory muscle use. HEART: Regular rate and rhythm, S1, S2 without murmur, rub or gallop. ABDOMEN: Soft, tender to palpation on RUQ, nondistended, normoactive bowel sounds EXTREMITIES: 2+ pulses, warm, well-perfused, no edema. NEUROLOGICAL: Cranial nerves II through XII grossly intact. Normal speech, gait not observed. PSYCH: Normal mood, normal affect. SKIN: Warm, dry, normal turgor, scattered petichiae Laboratory Results - last 24 hr 03/12/19 03/14/19 03/14/19 05:00 07:30 07:30 WBC 9.5 RBC 2.96 L Hgb 8.8 L Hct 25.8 L MCV 87.0 MCH 29.7 MCHC 34.1 RDW 13.5 Plt Count 7 L* D MPV 10.1 D Absolute Neuts (auto) 8.1 H Neutrophils % 85.9 H D Neutrophils % (Manual) 76.8 Band Neutrophils % 9.5 Lymphocytes % 7.2 L D Lymphocytes % (Manual) 5.3 L Monocytes % 6.8 Monocytes % (Manual) 4 Eosinophils % 0.0 D Eosinophils % (Manual) 0.0 Basophils % 0.1 Basophils % (Manual) 0.0 Myelocytes % (Man) 0 Promyelocytes % (Man) 0 Blast Cells % (Manual) 0 Nucleated RBC % 0 Metamyelocytes 0 Hypochromia 0 Platelet Estimate Decreased Platelet Comment Present Polychromasia 0 Poikilocytosis 1+ Anisocytosis 2+ Microcytosis 1+ Macrocytosis 0 Tear Drop Cells 1+ Schistocytes 1+ Sodium 140 Potassium 3.5 Chloride 110 H Carbon Dioxide 22 Anion Gap 8 BUN 23.4 H Creatinine 0.8 Est GFR (CKD-EPI)AfAm 88.42 Est GFR (CKD-EPI)NonAf 76.29 Random Glucose 226 H Calcium 8.3 L Phosphorus 3.4 Magnesium 2.5 H JUS Screen Negative Active Medications Generic Name Dose Route Start Last Admin Trade Name Jose Luis PRN Reason Stop Dose Admin Dexamethasone Sodium Phosphate 40 mg 03/13/19 10:00 03/14/19 10:59 Decadron Injection - IVPB 03/15/19 11:29 40 mg DAILY AZUCENA Administration Lidocaine/Aluminum/Magnesium/Simeth 5 ml 03/13/19 18:00 03/14/19 05:08 Magic Mouthwash *Sjr Formula* - MM 5 ml Q6HPO AZUCENA Administration Pantoprazole Sodium 40 mg 03/13/19 10:00 03/14/19 10:57 Protonix - PO 40 mg DAILY AZUCENA Administration ASSESSMENT/PLAN: #Acute Intracranial and mucosal bleeding secondary to Thrombocytopenia #ITP -s/p 2 days IVIG (total 140gms) -Plt today 7. No response to IVIG or platelets -s/p 8 Units Platelets. -Order 2 U platelets today -CTAP w/ contrast ordered -FISH, flow cytometry and cytogenetics ordered -Viral Screen negative -HIV negative -Abdominal/Splenic US - normal spleen, fatty liver. -Head CT: multiple small hyperdense foci, suspicious for hemorrhages - no significant change on subsequent CT. -Peripheral smear reported as severe thrombocytopenia, no clumping, no RBC fragments, no immature cells, few atypical lymphocytes. -No renal dysfunction. Fibrinogen levels and PT normal. -No history of weight loss, night sweats or leukopenia/leukocytosis, and given essentially normal smear, no immediate indication for bone marrow biopsy at this time. -Day 3 Decadron 40mg -monitor H&H, Platelets -monitor for signs of bleeding Patient not responding to platelet/IVIG/steroids. Will likely need Nplate and/ or splenectomy which we do not offer here. Recommend transfer to tertiary center. Visit type - Emergency Visit Emergency Visit: Yes ED Registration Date: 03/11/19 Care time: The patient presented to the Emergency Department on the above date and was hospitalized for further evaluation of their emergent condition. - New Patient This patient is new to me today: No - Critical Care Critical Care patient: No ATTENDING PHYSICIAN STATEMENT I saw and evaluated the patient. I reviewed the resident's note and discussed the case with the resident. I agree with the resident's findings and plan as documented. SUBJECTIVE: OBJECTIVE: ASSESSMENT AND PLAN:
--- NOTE | 2019-03-14 16:01 | DS ---
Physical Exam: SUBJECTIVE: Patient seen and examined at bedside. pt has no acute complaints. pt states that her rash is improving. OBJECTIVE: Vital Signs Period Temp Pulse Resp BP Sys/Farooq Pulse Ox Last 24 Hr 97.8 F-99.1 F 44-57 18-20 126-168/57-74 95-97 PHYSICAL EXAM GENERAL: The patient is awake, alert, and fully oriented, in no acute distress. HEAD: Normal with no signs of trauma. LUNGS: Breath sounds equal, clear to auscultation bilaterally, no wheezes, no crackles, no accessory muscle use. HEART: Regular rate and rhythm, S1, S2 without murmur, rub or gallop. ABDOMEN: Soft, nontender, nondistended, normoactive bowel sounds EXTREMITIES: 2+ pulses, warm, well-perfused, no edema, pinpoint rash B/L LE PSYCH: Normal mood, normal affect. SKIN: Warm, dry, normal turgor, no rashes or lesions noted. LABS Laboratory Last Values WBC 9.5 K/mm3 (4.0-10.0) 03/14/19 07:30 RBC 2.96 M/mm3 (3.60-5.2) L 03/14/19 07:30 Hgb 8.8 GM/dL (10.7-15.3) L 03/14/19 07:30 Hct 25.8 % (32.4-45.2) L 03/14/19 07:30 MCV 87.0 fl (80-96) 03/14/19 07:30 MCH 29.7 pg (25.7-33.7) 03/14/19 07:30 MCHC 34.1 g/dl (32.0-36.0) 03/14/19 07:30 RDW 13.5 % (11.6-15.6) 03/14/19 07:30 Plt Count 7 K/MM3 (134-434) L* D 03/14/19 07:30 MPV 10.1 fl (7.5-11.1) D 03/14/19 07:30 Absolute Neuts (auto) 8.1 K/mm3 (1.5-8.0) H 03/14/19 07:30 Neutrophils % 85.9 % (42.8-82.8) H D 03/14/19 07:30 Neutrophils % (Manual) 76.8 % (42.8-82.8) 03/14/19 07:30 Band Neutrophils % 9.5 % 03/14/19 07:30 Lymphocytes % 7.2 % (8-40) L D 03/14/19 07:30 Lymphocytes % (Manual) 5.3 % (8-40) L 03/14/19 07:30 Monocytes % 6.8 % (3.8-10.2) 03/14/19 07:30 Monocytes % (Manual) 4 % (3.8-10.2) 03/14/19 07:30 Eosinophils % 0.0 % (0-4.5) D 03/14/19 07:30 Eosinophils % (Manual) 0.0 % (0-4.5) 03/14/19 07:30 Basophils % 0.1 % (0-2.0) 03/14/19 07:30 Basophils % (Manual) 0.0 % (0-2.0) 03/14/19 07:30 Myelocytes % (Man) 0 % (0-2) 03/14/19 07:30 Promyelocytes % (Man) 0 % (0-2) 03/14/19 07:30 Blast Cells % (Manual) 0 % (0-0) 03/14/19 07:30 Nucleated RBC % 0 % (0-0) 03/14/19 07:30 Metamyelocytes 0 % (0-2) 03/14/19 07:30 Hypochromia 0 03/14/19 07:30 Platelet Estimate Decreased 03/14/19 07:30 Platelet Comment Present 03/14/19 07:30 Polychromasia 0 03/14/19 07:30 Poikilocytosis 1+ 03/14/19 07:30 Anisocytosis 2+ 03/14/19 07:30 Microcytosis 1+ 03/14/19 07:30 Macrocytosis 0 03/14/19 07:30 Tear Drop Cells 1+ 03/14/19 07:30 Schistocytes 1+ 03/14/19 07:30 PT with INR 12.60 SEC (9.7-13.0) 03/12/19 05:00 INR 1.07 (0.83-1.09) 03/12/19 05:00 PTT (Actin FS) 33.7 SECONDS (25.2-36.5) 03/12/19 05:00 Fibrinogen 455.0 mg/dL (238-498) 03/11/19 01:53 D-Dimer 996 ng/ml (0-500) H 03/11/19 01:53 Sodium 140 mmol/L (136-145) 03/14/19 07:30 Potassium 3.5 mmol/L (3.5-5.1) 03/14/19 07:30 Chloride 110 mmol/L (98-107) H 03/14/19 07:30 Carbon Dioxide 22 mmol/L (21-32) 03/14/19 07:30 Anion Gap 8 MMOL/L (8-16) 03/14/19 07:30 BUN 23.4 mg/dL (7-18) H 03/14/19 07:30 Creatinine 0.8 mg/dL (0.55-1.3) 03/14/19 07:30 Est GFR (CKD-EPI)AfAm 88.42 03/14/19 07:30 Est GFR (CKD-EPI)NonAf 76.29 03/14/19 07:30 Random Glucose 226 mg/dL (74-106) H 03/14/19 07:30 Calcium 8.3 mg/dL (8.5-10.1) L 03/14/19 07:30 Phosphorus 3.4 mg/dL (2.5-4.9) 03/14/19 07:30 Magnesium 2.5 mg/dL (1.8-2.4) H 03/14/19 07:30 Total Bilirubin 0.4 mg/dL (0.2-1) 03/11/19 07:00 AST 20 U/L (15-37) 03/11/19 07:00 ALT 35 U/L (13-61) 03/11/19 07:00 Alkaline Phosphatase 73 U/L (45-117) 03/11/19 07:00 Total Protein 6.9 g/dl (6.4-8.2) 03/11/19 07:00 Albumin 3.9 g/dl (3.4-5.0) 03/11/19 07:00 Vitamin B12 > 2000 pg/ml (193-986) H 03/11/19 07:00 TSH 0.65 uIU/ml (0.358-3.74) 03/13/19 06:55 Urine Color Dk yellow 03/11/19 00:50 Urine Appearance Cloudy 03/11/19 00:50 Urine pH 5.0 (5.0-8.0) 03/11/19 00:50 Ur Specific Grady 1.037 (1.010-1.035) H 03/11/19 00:50 Urine Protein 2+ (NEGATIVE) H 03/11/19 00:50 Urine Glucose (UA) Negative (NEGATIVE) 03/11/19 00:50 Urine Ketones 1+ (NEGATIVE) H 03/11/19 00:50 Urine Blood Trace (NEGATIVE) 03/11/19 00:50 Urine Nitrite Negative (NEGATIVE) 03/11/19 00:50 Urine Bilirubin 1+ (NEGATIVE) H 03/11/19 00:50 Urine Urobilinogen 1.0 mg/dL (0.2-1.0) 03/11/19 00:50 Ur Leukocyte Esterase 1+ (NEGATIVE) H 03/11/19 00:50 Urine WBC (Auto) 24 /hpf (0-5) 03/11/19 00:50 Urine RBC (Auto) 9 /hpf (0-4) 03/11/19 00:50 Urine Casts (Auto) 81 /lpf (0-8) 03/11/19 00:50 U Pathogenic Cast Auto None /lpf (NEGATIVE) 03/11/19 00:50 U Epithel Cells (Auto) 9.6 /HPF (0-5/HPF) 03/11/19 00:50 U Sm Round Cell (Auto) None 03/11/19 00:50 Urine Crystals (Auto) None /hpf 03/11/19 00:50 Urine Bacteria (Auto) 37.3 /hpf (NEGATIVE) 03/11/19 00:50 Urine Yeast (Auto) None (NEGATIVE) 03/11/19 00:50 JUS Screen Negative (.) 03/12/19 05:00 Hepatitis A IgM Ab Negative (Negative) 03/11/19 08:30 Hep Bs Antigen Negative (Negative) 03/11/19 08:30 Hep B Core IgM Ab Negative (Negative) 03/11/19 08:30 Hepatitis C Antibody 0.1 s/co ratio (0.0-0.9) 03/11/19 08:30 Monoscreen Negative (NEGATIVE) 03/11/19 07:00 HIV Ag/Ab Interpret Cancelled 03/11/19 08:30 HIV-2 Antibody Cancelled 03/11/19 08:30 HIV-2 Antibody Conf Cancelled 03/11/19 08:30 HIV 1&2 Ag/Ab, 4th Gen Cancelled 03/11/19 08:30 HIV 1&2 Antibody Screen Negative 03/11/19 09:19 HIV 1&2 Ab Final Interp Cancelled 03/11/19 08:30 HIV P24 Antigen Negative 03/11/19 09:19 Blood Type A POSITIVE 03/11/19 01:31 Antibody Screen Negative 03/11/19 01:[address]: Again seen is mild dense thickening of the anterior falx cerebri suspicious for a tiny subdural bleed, grossly unchanged. Small focal density in the right frontal lobe anterior to the right lateral ventricle is less defined than the prior exam and possibly represents tiny focus of parenchymal contusion. No new foci of intra or extra-axial density seen to suggest new areas of bleeding. No edema or mass effect seen. Abdominal U/S Distended urinary bladder limiting its evaluation without gross evidence of intraluminal stones or wall thickening mild fatty infiltration of the liver versus hepatocellular disease. Please correlate with liver enzymes. Exophytic left renal lower pole simple cyst measuring 3.4 x 2.6 cm. Normal size spleen with a homogeneous echotexture. HOSPITAL COURSE: Date of Admission:03/11/19 68 yo F with no significant medical history who presented to the ED with headache, stomach pain, and non resolving oral mucosal bleeding. The symptoms began following a URI and cough she had for 4 days. The pt denies recent medication history. No hematemesis, melena, hematochezia/hematuria. No fever/ chills. No joint pain/swelling/tenderness. No cardiopulmonary of renal disease history.In the ED, Platelet count was 1000. The pt had a CT of the head showing multiple small intracranial hemorrhages. Neurosurgery was consulted on the case decided that no intervention was necessary since the pt was not showing any neurological defecits. Rpt head CT was unchanged. The pt also had an abdominal u /s showing a fatty liver and a left renal cyst 3.4x4.6cm. Pt was admitted to ICU where she was given 6 units of platelets with inadequate response. The pt was treated with IVIG for 2 days and Decadron 40mg daily. While on the medicine floors, on 03/13, pt received 2 more units of platelets. Pt plt count today is 7000. Pt tested for Hepatitis, JUS, HIV and all are negative. Date of Discharge: 03/14/19 Discharge Summary Reason For Visit: THROMBOCYTOPENIA Current Active Problems Thrombocytopenia (Acute) Condition: Good - Instructions Diet, Activity, Other Instructions: You were admitted to the hospital for continuous bleeding from your mouth. Your test results found that you have very low platelet count in your blood. You were treated with IVIG, steroids, and platelets. Your ultrasound showed a cyst on your left kidney. Please consult your primary care physician regarding this finding. Your brain CT showed some bleeding in your brain. Please follow up with your neurosurgeon, Dr. Jj once discharged. You are being transferred to [facility]. Referrals: Bill Jj MD, FAANS [Staff Physician] - Disposition: TRANSFER ACUTE CARE/OTHER HOSP - Home Medications Comprehensive Discharge Medication List: Ambulatory Orders Mag Hydrox/Alh/Smc/Dpha/Lido [Magic Mouthwash *Sjr Formula* -] 5 ml MM Q6HPO bottle 03/14/19 Pantoprazole Sodium [Protonix -] 40 mg PO DAILY tablet.ec 03/14/19 - Discharge Referral Referred to [facility] No ATTENDING PHYSICIAN STATEMENT I saw and evaluated the patient. I reviewed the resident's note and discussed the case with the resident. I agree with the resident's findings and plan as documented. SUBJECTIVE: OBJECTIVE: ASSESSMENT AND PLAN:
[2019-03-14] MEDS ORDERED: amLODIPine BESYLATE 5 MG TABLET (FP) PO ONE (18:28)
--- NOTE | 2019-03-14 18:33 | PN ---
Progress Note (short form) - Note Progress Note: Patient seen and examined To date , no response to either gamma globulin or decadron. refractory to platelet infusion . May be candidate for N-plate. Hopefully some response to treatment already administered . ? consideration of weekly rituxin . BP post CT elevated - norvasc- 5 mg ordered.
[2019-03-14 22:07] VITALS: BP 157/83; PULSE 45; TEMP 98.6
--- NOTE | 2019-03-15 16:36 | PATH ---
Surgical Pathology Report Patient Name: SANDRA DO Med. Rec. #: [id number] /Age/Gender: 1950 (Age: 69) / F Account: [id number] Location: [address] [place] [address] Taken: 03/14/2019 Received: 03/14/2019 Reported: 03/15/2019 Physicians: Cayla Berrios M.D. Specimen(s) Received PERIPHERAL BLOOD Clinical History Thrombocytopenia, ITP Final Diagnosis COMPREHENSIVE FLOW CYTOMETRY performed and interpreted at [facility], [place], [place] ([id number]) INTERPRETATION: Granulocytosis with no discrete atypical flow cytometric findings seen. Phenotype: Granulocytes are increased but show no detectable aberrant marker expression. Blasts are not detected. Lymphocytes are proportionally decreased and include polyclonal B cells, NK cells and immunophenotypically normal CD4+ and CD8+ T cells in normal proportions. No evidence of a clonal lymphoid expansion. Monocytes are mature and express aberrant CD56, a nonspecific finding that can be seen in both reactive conditions and myeloid neoplasms. Cytomorphology: Smears from flow sample show no increase in myeloblasts or atypical lymphocytes. MYELODYSPLASIA FISH PANEL performed and interpreted at [facility] in [place], [place] ([id number]) shows the following. INTERPRETATION: No evidence of deletion 5q or monosomy 5 is present. No evidence of deletion 7q or monosomy 7 is present. No evidence of trisomy 8 (+8) is present. No evidence of deletion 13q14.2 is present. No evidence of a rearrangement of 11q23. No evidence of a deletion of the p53 (17p13) locus. No evidence of deletion 20q12 is present. Comments: The study is negative for many of the most common recurrent genetic abnormalities in Myelodysplastic Syndrome. Correlation with pending cytogenetics ([id number]) is recommended. See [facility] reports for additional details. Electronically Signed Tana Zhang M.D. Gross Description Received are 2 green top tubes of blood which are sent to [facility]. DL/03/14/2019 saudi/03/14/2019
== END 2019-03-14 22:00 | disposition short-term general hospital (02) | DRG 661 ==
LOC: JER 23:53 → JERBED 03-11 03:42 → JICU 03-11 06:15 → J5S 03-12 15:05
PROVIDERS: ADMIT Internal Medicine; ATTEND Internal Medicine
PROC: 30233R1 Transfusion of Nonautologous Platelets into Peripheral Vein, Percutaneous Approach (ICD-10-PCS; principal; 2019-03-11)
DX: D69.3 Immune thrombocytopenic purpura (principal); I61.9 Nontraumatic intracerebral hemorrhage, unspecified; D64.9 Anemia, unspecified; N28.1 Cyst of kidney, acquired; R51 Headache; R04.0 Epistaxis; K76.0 Fatty (change of) liver, not elsewhere classified
CPT/HCPCS: 36415; 36430; 36511; 70450-TC; 71045-TC-FY; 71046-TC-FY; 74177-TC; 76700-TC; 80048; 80053; 80074; 81003; 82607; 83735; 84100; 84443; 85025; 85027; 85379; 85384; 85610; 85730; 86038; 86308; 86705; 86850; 86900; 86901; 87389; 88300-TC; 93005; 93010; 99283-25; J0131; J1100; J1459; P9034; P9038